=== PATIENT | male | born 1955 | race Caucasian/White ===

== ENCOUNTER 2018-03-13 13:06 | Emergency (ER) | payer OTHER, SELFPAY ==
[2018-03-13 13:07] VITALS: BP 149/89; PULSE 92; RESP 16; TEMP 36.9; O2SAT 97; BMI 26.2
[2018-03-13 13:42] LABS: Absolute Lymphocyte Count 1.07 X10^3/ul (0.83-4.51); Absolute Neutrophil Count 1.1 X10^3/uL (2.0-7.7); Basophil# 0.01 X10^3/uL; Basophil% 0.4 % (0-1); Eosinophil# 0.02 X10^3/uL; Eosinophils% 0.8 % (0-5); Hematocrit 36.2 % (40-54); Hemoglobin 13.1 g/dl (13.0-16.5); Lymphocyte # 1.07 X10^3/ul (4.0); Lymphocyte % 43.1 % (19-41); Mean Corp Hgb Conc 36.2 g/gl (32-36); Mean Corpuscular Hgb 35.9 pg (27.0-32.0); Mean Corpuscular Volume 99.2 fL (80-94); Mean Platelet Vol. 9.9 fl (6.2-12.0); Monocyte% 12.1 % (0-10); Neutrophil # 1.08 X10^3/uL (2.7-7.7); Neutrophil % 43.6 % (47-70); Platelet Count 116 K/mm3 (150-450); RBC Distribution Width CV 15.5 % (11.6-14.6); RBC Distribution Width SD 54.4 fl (35.1-43.9); Red Blood Count 3.65 M/mm3 (4.6-6.2); White Blood Count 2.5 K/mm3 (4.4-11.0)
[2018-03-13 13:45] LABS: POSITIVE COUNT NO; POSITIVE DIFFERENTIAL NO; POSITIVE MORPHOLOGY NO
[2018-03-13 13:49] LABS: Anion Gap 9 (5-15); BUN 25 mg/dL (7-18); BUN/Creat Ratio 26.3 RATIO (10-20); Calcium,Total 8.9 mg/dL (8.5-10.1); Chloride 103 mmol/L (98-107); Creatinine, Serum 0.95 mg/dL (0.70-1.30); EST Glomerular Filtration Rate 85 mL/min (>60); Est Glom Filt Rate - Afr Amer 102 mL/min (>60); Estimated Creatinine Clearance 73.44 ml/min; Glucose 112 mg/dL (74-106); Sodium Level 134 mmol/L (136-145)
[2018-03-13 13:50] LABS: International Normalized Ratio 1.1; Partial Thromboplast Time 26.4 Seconds (24.1-36.2); Prothrombin Time (Protime)PT. 14.3 SECONDS (11.7-14.9)
--- NOTE | 2018-03-13 14:21 | ED.VISSUMM ---
- ER Visit Summary Date of Service: 03/13/18 Chief Complaint: Abnormal CT History of Present Illness: The patient is a 62 M presenting secondary to the CT abnormality. Patient has a history of cancer is undergoing treatment for this, and was getting a surveillance CT performed today. Incidentally the patient was found to have a descending thoracic dissection that starts at the level of the diaphragm and goes inferiorly. Patient is asymptomatic from this, denies any chest pain abdominal pain back pain shortness of breath decreased urine. Patient states that he was otherwise feeling well, and they told him that he had to come into the hospital for evaluation. Physical Examination: Well-nourished male no acute distress. Initial blood pressure 149/89, but decreased into the 120s over 80s while the patient was in the emergency department. Heart rate is in the 80s as well. Head normocephalic. Moist mucous membranes. No JVD. Heart regular rate and rhythm no evidence of murmurs, normal S1 and S2 no gallops. Lungs sounds clear with left anterior chest port clean dry and intact. Abdomen soft nontender no palpable masses are noted. No peripheral edema is noted., +2 DP and PT pulses that are bilaterally symmetric. Remainder of physical otherwise unremarkable. Test Results: CBC demonstrates leukopenia and thrombocytopenia consistent with patient's cancer treatment. Regulation studies are unremarkable, metabolic panel shows no evidence of renal failure Emergency Department Course and Treatment: Patient presented with an incidental finding of a descending type B thoracic dissection. He is asymptomatic. He has no evidence of renal insufficiency bad back pain numbness or weakness. I discussed patient's case with the covering vascular surgeon Dr. Stewart. He states that in patients such as this that are asymptomatic and are not having any issues from their dissection that the preferences for medical treatment with aspirin and a beta-trice. Patient will be placed on full dose aspirin as well asthma Toprol all. He understands signs and symptoms which to return. Patient was discharged with outpatient follow-up with vascular surgery. Disposition: Discharge Impression: 1. Type B thoracic aortic dissection This note was generated with [employer] dictation software. It may contain incorrect words, spelling, and punctuation that were not noted in review of the chart prior to signing ED Disposition - Plan for ED Patient: Disposition: Home or Assisted Living Chief Complaint: Chest Other Diagnosis: Descending thoracic dissection Instructions: Computed Tomography Angiography (CTA) Prescriptions: Aspirin E.C. [Ecotrin] 325 mg PO DAILY@0800 #30 tab Metoprolol Tartrate 25 mg PO BID #60 tab Referrals: Adam Stewart MD [STAFF PHYSICIAN] - 1-2 Weeks
[2018-03-13 14:23] VITALS: BP 129/87; PULSE 84; RESP 22; O2SAT 95
[2018-03-13 14:41] VITALS: BP 138/87; PULSE 77; RESP 16; O2SAT 95
== END 2018-03-13 14:42 | disposition home or self-care (01) ==
PROVIDERS: Emergency Provider Emergency Medicine; Family Provider Family Medicine; PCP Family Medicine
DX: I71.01 Dissection of thoracic aorta (principal); C18.9 Malignant neoplasm of colon, unspecified; D72.819 Decreased white blood cell count, unspecified; D69.6 Thrombocytopenia, unspecified; Z79.899 Other long term (current) drug therapy
CPT/HCPCS: 80048; 85025; 85610; 85730; 99282; A4216

== ENCOUNTER → 2019-05-22 09:49 | Outpatient (CLI) | payer MEDICARE, SELFPAY ==
[2019-05-22 12:13] LABS: Absolute Lymphocyte Count 1.55 X10^3/uL (0.83-4.51); Absolute Neutrophil Count 2.4 X10^3/uL (2.0-7.7); Basophil# 0.02 X10^3/uL; Basophil% 0.4 % (0-1); Eosinophil# 0.09 X10^3/uL; Eosinophils% 1.9 % (0-5); Hematocrit 44.5 % (40-54); Lymphocyte # 1.55 X10^3/ul (4.0); Lymphocyte % 33.5 % (19-41); Mean Corp Hgb Conc 33.7 g/dL (32-36); Mean Corpuscular Hgb 33.2 pg (27.0-32.0); Mean Corpuscular Volume 98.5 fL (80-94); Mean Platelet Vol. 9.8 fl (6.2-12.0); Monocyte# 0.58 X10^3/uL; Monocyte% 12.5 % (0-10); NRBC Flagged by Analyzer 0.4 % (0-5); Neutrophil # 2.38 X10^3/uL (2.7-7.7); Neutrophil % 51.5 % (47-70); Platelet Count 201 K/mm3 (150-450); RBC Distribution Width CV 14.2 % (11.6-14.6); RBC Distribution Width SD 51.8 fl (35.1-43.9); Red Blood Count 4.52 M/mm3 (4.6-6.2); White Blood Count 4.6 K/mm3 (4.4-11.0)
[2019-05-22 12:50] LABS: AST(SGOT) 21 U/L (15-37); Alanine Aminotransfer ALT/SGPT 36 U/L (16-61); Albumin, Serum 3.4 g/dL (3.2-5.0); Alkaline Phosphatase 60 U/L (45-117); Anion Gap 7 (5-15); BUN 17 mg/dL (7-18); BUN/Creat Ratio 19.5 RATIO (10-20); Chloride 107 mmol/L (98-107); Cholesterol 229 mg/dL (200); Creatinine, Serum 0.87 mg/dL (0.70-1.30); EST Glomerular Filtration Rate 93 mL/min (>60); Est Glom Filt Rate - Afr Amer 113 mL/min (>60); Globulin 3.5 g/dL (2.2-4.2); Glucose 119 mg/dL (74-106); High Density Lipoprotein 35 mg/dL; Potassium 4.8 mmol/L (3.5-5.1); Protein, Total 6.9 g/dL (6.4-8.2); Sodium Level 142 mmol/L (136-145); Thyroid Stim Hormone (TSH) 1.32 uIU/mL (0.358-3.74); Triglycerides 164 mg/dL; Very Low Density Lipoprotein 33 mg/dL (5-40)
[2019-05-23 11:46] LABS: Hemoglobin A1c 6.9 % (4.2-6.3)
== END ==
PROVIDERS: Family Provider Family Medicine; PCP Family Medicine; Referring Provider Family Medicine; Visit Provider Family Medicine
DX: E78.00 Pure hypercholesterolemia, unspecified (principal); E78.5 Hyperlipidemia, unspecified; C20 Malignant neoplasm of rectum
CPT/HCPCS: 36415; 80053; 80061; 83036; 84443; 85025

== ENCOUNTER 2019-08-28 07:21 | Day surgery (SDC) | payer MEDICARE, SELFPAY ==
--- NOTE | 2019-08-27 18:31 | PCM.HP.BLA ---
History and Physical Date of Admission: 08/28/19 HISTORY AND PHYSICAL ? Marquis Montgomery 1955 ? ? REFERRING PHYSICIAN: ??Hang Vargas DO ? CHIEF COMPLAINT: ??Consult ? 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 ?Marquis is currently scheduled to undergo chemotherapy and needs vascular access for treatment. ?The patient had a prior left subclavian portacath placed by Dr. Angulo which was removed in April 2018. ? ? PAST MEDICAL HISTORY PAST MEDICAL HISTORY Diagnosis Date ? Hypertension ? ? Rectal cancer (HCC) 2016 ? 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 metastatic adenocarcinoma (colorectal origin) ? ? PAST SURGICAL HISTORY PAST SURGICAL HISTORY Procedure Laterality Date ? COLONOSCOPY ? 05/09/2017 ? DENTAL SURGERY HX ? ? ? PAST SURGICAL HISTORY OF ? 1967 ? right hand surgery ? PAST SURGICAL HISTORY OF ? 10/17/2017 ? colectomy,ileostomy ? PAST SURGICAL HISTORY OF ? ? ? ileostomy closure ? REMV LUNG,WEDGE RESECTION Left 10/17/2018 ? left upper lung (metastatic rectal cancer) ? S PORT A CATH II STANDARD ? 11/22/2017 ? PORT A CATH INSERTION BLUE ? ? CURRENT MEDICATIONS Current Outpatient Medications Medication Sig Dispense Refill ? rosuvastatin (CRESTOR) 10 mg tablet Take 10 mg by mouth once daily. ? ? ? Cod Liver Oil oil Take 1 tablet by mouth twice daily. ? ? ? hydrOXYzine HCl (ATARAX) 10 mg tablet TAKE 1 TABLET BY MOUTH BEFORE BED EACH NIGHT AND EVERY 8 HOURS NEEDED FOR ALLERGIES ? 1 ? Ascorbic Acid (VITAMIN C) 1,000 mg tablet Take 1,000 mg by mouth once daily. ? ? ? cyanocobalamin (VITAMIN B-12) 1,000 mcg tab Take 1,000 mcg by mouth once daily. ? ? ? acetaminophen (TYLENOL) 500 mg tablet Take 2 tablets by mouth every 6 hours as needed. (Patient not taking: Reported on 08/23/2019 ) 50 tablet 0 ? No current facility-administered medications for this visit.? ? ALLERGIES:?Patient has no known allergies. ? PERSONAL HISTORY:? SOCIAL HISTORY Social History ? Tobacco Use ? Smoking status: Former Smoker ? ? Years: 35.00 ? ? Types: Pipe ? ? Last attempt to quit: 06/18/2017 ? ? Years since quittin.1 ? Smokeless tobacco: Never Used ? Tobacco comment: pipe Substance Use Topics ? Alcohol use: Yes ? ? Alcohol/week: 2.5 standard drinks ? ? Types: 1 Glasses of Wine (5oz) per week ? ? Comment: 1-1.5 glasses wine daily ? Drug use: No ? FAMILY HISTORY:? FAMILY HISTORY FAMILY HISTORY Problem Relation Age of Onset ? Stroke Mother ? ? Heart Father ? ? REVIEW OF SYMPTOMS: ??The review of systems data was entered by the nurse and reviewed by me ? Nursing Notes: Jody Marin RN ?08/23/2019 ?1:20 PM ?Signed REVIEW OF SYSTEMS: ?General:???The patient denies fatigue, denies weight loss, denies weight gain, denies feeling hot, and denies feelings of cold. ?Eyes: ?The patient denies glaucoma, denies eye injury/surgery, does not wear glasses or contacts. ?Ear/Nose/Throat: ?The patient denies allergies, denies hayfever, denies ear infections, and denies bloody noses. ?Cardiovascular: ?The patient denies chest pain, denies heart disease, denies high blood pressure,denies cardiac stent, denies prior heart attack, denies irregular heart beat, denies high cholesterol, ?denies poor circulation, denies heart failure, other cardiac issues, notes claudication, denies cold feet, denies peripheral arterial stent. ?Respiratory: ?The patient denies tuberculosis, denies pneumonia, denies frequent cough, denies pulmonary embolism, denies shortness of breath, and denies coughing up blood. ?Gastrointestinal: ?The patient denies difficulty swallowing, denies acid reflux, denies ulcers, denies vomiting, denies jaundice/hepatitis, denies gallbladder problems, denies black or tarry stools, denies hemorrhoids, denies bleeding from rectum, denies diverticulitis, denies constipation, denies diarrhea, denies loss of stool control, and denies hernias. ?Kidney/Bladder: ?The patient denies kidney stones, denies urine infections, and denies bloody urine. ?Skin: ?The patient denies a history of skin cancer, denies bleeding/changing moles, and denies a history of skin rash. ?Neurologic: ?The patient denies a history of epilepsy/convulsions, denies headaches, denies head/spinal injuries, and denies stroke/TIA. ?Psychiatric: ?The patient denies psychiatric medications, denies depression, and denies voices, denies substance abuse. ?Endocrine: ?The patient denies thyroid disorders, denies diabetes, and denies hormonal problems. ?Hematologic: ?The patient denies a history of bruising, denies bleeding, and denies anemia, denies blood clots. ?Infections: ?The patient denies a history of measles and mumps, denies rheumatic fever, and denies sexually transmitted diseases. ?Musculoskeletal: ?The patient denies back pain/injury, denies back problems, denies sciatica, denies knee/foot trouble, denies arthritis, or denies gout. ? ? When was patient's last Mammogram screening? N/A ? ?Last Colonoscopy: ?08/13/2018 ? Jody Marin RN? I have confirmed and edited as necessary, the PFSH and ROS obtained by others. ? ? PHYSICAL EXAMINATION: ? General: ?The patient is 63 year old male, well nourished, well hydrated in no acute distress. ?The patient is oriented to time, place, and person. ? VITALS:?Blood pressure 124/70, pulse 76, temperature 36.4 ?C (97.6 ?F), temperature source Temporal Artery, height 171.5 cm (5' 7.5), weight 86.2 kg (190 lb), SpO2 96 %.?Body mass index is 29.32 kg/m?.? ? HEENT: ?Normal cephalic, ataumatic, pupils are equally round, sclera are anicteric, mucous membranes are moist, oropharynx is clear. ?Neck has no masses, asymmetry or lymphadenopathy. ?Thyroid is unremarkable. ? Respiratory: ?Clear to auscultation and percussion. ?Normal respiratory excursion and pattern. ? Cardiac: ?Examination is regular rate and rhythm. ? Abdominal exam: ?Soft, nontender, ?with no palpable masses. ?No hepatosplenomegaly. ?No palpable hernias. ? Rectal exam:??exam deferred ? Extremities: ?no clubbing, cyanosis or edema. ?No adenopathy. ? Other: ? ? LABORATORY VALUES: As Noted ? RADIOLOGIC STUDIES: ?As Noted ? Assessment ? IMPRESSION:??Rectal adenocarcinoma with metastasis, need for IV access ? PLAN:???Dr. Angulo will plan to perform portacath placement.??The planned surgical procedure was discussed extensively with the patient. ?The risks, benefits, anticipated outcomes and possible complications were mentioned. ?My staff has also explained the procedure in understandable terms and the patient was given the option to take printed material concerning the planned procedure. ?The patient had the opportunity to ask questions concerning the planned procedure. ?The patient freely consents to the planned procedure. ? Planned Procedure:?right??Subclavian portacath - [id number]???History of prior left subclavian portacath ? Patient Weight ?Last 1 Encounter Wt Readings: ???Date: ?Wt: ???08/23/2019 ??86.2 kg (190 lb) ? Antibiotic:???Ancef 2gm IVPB customer service and sales consultant to OR ? Planned Anesthetic:?MAC with local? Dr. Angulo may?plan to access the port at the time of surgery. ? Diagnoses:?(C20) Rectal cancer (HCC) ?(primary encounter diagnosis) (C78.02) Malignant neoplasm metastatic to left lung (HCC) ? ? The patient is being seen by me today at the request of ?for my opinion and advice regarding port placement.? Linette Huang PA-C
[2019-08-28] VITALS (7 sets, daily range): BP systolic 100–123; BP diastolic 67–76; PULSE 62–76; RESP 16–18; TEMP 36.4–36.6; O2SAT 94–98; BMI 29.3
[2019-08-28] MEDS: Lactated Ringers 1,000 ML 100 ML IV (08:08)
[2019-08-28] MEDS: Cefazolin 2 GM in 0.9% Normal Saline 100 ML IV (08:57)
[2019-08-28] MEDS: Bupivacaine 0.5% PF 10 ML VIAL (09:08)
--- NOTE | 2019-08-28 09:26 | DCINST_ITS ---
Discharge Diet: No Restrictions - Pain medication may cause nausea. You should typically eat light foods as you take your pain medication. Discharge Activity: Return to Normal Activity, May Shower - with the bandage in place 1-2 days after surgery. DO NOT SHOWER WHEN YOUR PORT IS ACCESSED. Additional Activity Instructions:: May not drive, work with heavy equipment, or sign legal documents for [address] if you are no longer taking narcotic pain medications. You may drive when you are no longer taking pain medications. Additional Dressing/Incision Instructions:: Leave the bandage on for 2-3 days. When you remove the bandage, leave the steri-strips intact until they fall off. Allergies/Adverse Reactions: Allergies No Known Allergies Allergy (Verified 08/28/19 07:52) Medications to take at Discharge Ascorbic Acid [C-1000] 1,000 mg PO DAILY 06/22/17 hydrOXYzine tablet [Atarax tablet] 10 mg PO BID 06/22/17 Cyanocobalamin (Vitamin B-12) [Vitamin B12] 2,500 mcg PO DAILY 08/27/19 Rosuvastatin Calcium [Crestor] 10 mg PO QHS 08/27/19 Oxycodone HCl/Acetaminophen [Percocet 5/325] 1 tab PO Q4H PRN PRN 3 Days #6 tab 08/28/19 The following prescriptions were given: Oxycodone HCl/Acetaminophen [Percocet 5/325] 1 tab PO Q4H PRN PRN 3 Days #6 tab PRN Reason: Pain Prescription Printed Primary Care Physician: Matheus Renee MD [Primary Care Provider] - Test Results: Test results from this visit will be discussed in further detail at your follow- up appointment, if applicable. Please Follow Up With: Mukul Angulo MD - [phone] When: Please plan to follow up in 7 days in the office.
--- NOTE | 2019-08-28 09:26 | RAD_ITS ---
STUDY: X-RAY CHEST REASON FOR EXAM: Male, 63 years old. Right-sided port placement. TECHNIQUE: Single AP portable view of the chest. COMPARISON: Comparison is made with prior examination dated June 22, 2017. FINDINGS: EKG electrodes are seen. A right-sided Port-A-Cath has been placed. The tip is at the junction of the superior vena cava and right atrium. I suspect a 2.4 cm x 3 cm nodule in the right hilar region. There is no demonstrated pleural abnormality. Normal size heart. Normal mediastinum and ellen. Normal visualized pulmonary arteries. There is atherosclerotic tortuosity of the aortic arch and descending thoracic aorta. Normal visualized thoracic spine. Normal visualized ribs, clavicles, and shoulders. There is no demonstrated abnormality of the visualized soft tissue structures of the upper abdomen. RAD/CXR for Line Placement IMPRESSION: The tip of the right-sided portacatheter is at the junction of the superior vena cava and right atrium. I suspect a nodule in the right hilar region. Electronically Signed: Denis Norwood, at 11:02 EST , Service support ,
--- NOTE | 2019-08-28 09:27 | OP.PCM_ITS ---
Report of Operation Date of Procedure: 08/28/19 Pre-Operative Diagnosis: metastatic rectal adenocarcinoma Post-Operative Diagnosis: metastatic rectal adenocarcinoma, successful right subclavian portacath placement Surgery/Procedure Performed:: right subclavian portacath placement with fluoroscopy landscape maintenance internship: None Type of Anesthesia:: Local MAC Anesthesiologist: Gokul Decker ASA2 Specimen's removed: none Estimated Blood Loss (mL): 10 Fluids Replaced: 500 Description of Procedure: The patient was brought to the operating suite. The right subclavian site was marked in the holding area and the patient concurred this was the planned operative site. Sign was performed verifying patient, site, position, skip antibiotic prophylaxis-2 g of Ancef and DVT prophylaxis with SCDs. Following IV sedation, the right neck and chest were prepped and draped in the usual fashion. Timeout was performed verifying patient, site, position. Local anesthetic was injected and a Seldinger needle was used to access the right subclavian vein without difficulty. Under fluoroscopic control, a guidewire was inserted and advanced the SVC RA region. Local anesthetic was injected and incision made and pocket created for the port site. Next the catheter was tunneled from the wire site incision to the port site incision. Under fluoroscopic control introducer sheath and dilator were inserted over the wire. The wire and dilator removed. The catheter was fed through the introducer suture sheath and adjusted to the SVC RA region. There was good return of venous blood and easy inflow of saline through the system. Fluoroscopy demonstrated good positioning of the catheter. Next the catheter was cut to length affixed to the port with the locking ring and secured in the pocket with 2-2-0 Prolene sutures. Subcutaneous fat closed with interrupted 3-0 Vicryl suture. Skin closed with 4-0 Biosyn interrupted and running subcuticular sutures. Fluoroscopy demonstrated good position of the system. The port was accessed. There was good return of venous blood. Inflow of saline was easy. The port was then flushed with 2-3 cc of 100 unit per heparin solution. A dressing was applied. The patient was brought to recovery room in stable condition. Grafts/Implants Used: powerport [id number] Lot - [id number] exp - 01/08/2021
== END 2019-08-28 11:25 | disposition home or self-care (01) ==
LOC: SDC 07:22 → AC 07:23
PROVIDERS: Family Provider Family Medicine; PCP Family Medicine; Referring Provider Surgery; Visit Provider Surgery
PROC: (CPT 36561; principal; 2019-08-28 08:45)
DX: C20 Malignant neoplasm of rectum (principal); Z45.2 Encounter for adjustment and management of vascular access device; C78.02 Secondary malignant neoplasm of left lung; I10 Essential (primary) hypertension; Z87.891 Personal history of nicotine dependence; Z93.2 Ileostomy status; Z90.49 Acquired absence of other specified parts of digestive tract; Z79.899 Other long term (current) drug therapy
CPT/HCPCS: 36561; 71045; 77001; J7120; C1788

== ENCOUNTER → 2021-02-05 11:31 | Outpatient (CLI) | payer MEDICARE, SELFPAY ==
[2019-08-28 07:54] VITALS: BMI 29.3
--- NOTE | 2021-02-05 11:37 | RAD_ITS ---
EXAM: XR LUMBOSACRAL SPINE, 4 OR 5 VIEWS CLINICAL INDICATION: LEG WEAKNESS/BILATERAL TECHNIQUE: Frontal, lateral and oblique views of the lumbar spine. This report was created using [employer] report generation technology. COMPARISON: None. FINDINGS: VERTEBRAE: Moderate facet arthropathy L4-L5 and L5-S1. No spondylolysis. Preserved vertebral body height. No fracture. Preservation of the normal lumbar lordosis. DISC SPACES: No acute findings. Disc spaces are maintained. VASCULATURE: Atherosclerosis of the abdominal aorta. GASTROINTESTINAL TRACT: Unremarkable as visualized. Included bowel gas pattern is non-obstructive. RAD/L/S Spine Min 4 Views IMPRESSION: Lower level facet arthropathy. Spondylosis. Electronically Signed: Graham Swenson MD ([place]) at 14:36 EDT , Service support ,
== END ==
PROVIDERS: PCP Family Medicine; Referring Provider Family Medicine; Visit Provider Family Medicine
DX: R29.898 Other symptoms and signs involving the musculoskeletal system (principal)
CPT/HCPCS: 72110

== ENCOUNTER → 2021-02-24 10:46 | Outpatient (CLI) | payer MEDICARE, SELFPAY ==
[2019-08-28 07:54] VITALS: BMI 29.3
--- NOTE | 2021-02-24 10:57 | ART_ITS ---
Reason For Study: PAD Procedure A bilateral lower extremity continuous wave Doppler with analog waveform analysis,segmental pressures,and ankle brachial indexes with exercise. Left Segmental Pressures Left brachial= 122mmHg. Left posterior tibial artery = 136mmHg. Left dorsalis pedis artery = 128mmHg. Left digit = 115 mmHg. Right Segmental Pressures Right brachial= 119mmHg. Right posterior tibial artery = 138mmHg. Right dorsalis pedis artery = 134mmHg. Right digit = 94 mmHg. Indices The right ankle brachial index by the posterior tibial artery is 1.13. The right ankle brachial index by the dorsalis pedis is 1.10. The right digital-brachial index is 0.77. The right post exercise ankle brachial index is 1.25. The left ankle brachial index by the posterior tibial artery is 1.11. The left ankle brachial index by the dorsalis pedis is 1.05. The left digital-brachial index is 0.94. The left post exercise ankle brachial index is 1.09. VL/Lower Ext Art Exam w/ Exercise Interpretation Summary Triphasic Doppler waveforms are noted at ankle level bilaterally. Pulse-volume recordings appear satisfactory at all levels bilaterally. Resting ankle-brachial indices are norm al bilaterally. Digital-brachial indices are normal bilaterally. The patient underwent a period of exercise for 5 minutes, following which ankle pressures augmented bilaterally, a normal physio logical response. There is no evidence of significant arterial occlusive disease in the lower ext remities bilaterally. Ordering Physician: Matheus Renee Referring Physician: Matheus Renee Performed By: Jewels Howard RDCS/RVT
== END ==
PROVIDERS: PCP Family Medicine; Referring Provider Family Medicine; Visit Provider Family Medicine
DX: I73.9 Peripheral vascular disease, unspecified (principal)
CPT/HCPCS: 93924

== ENCOUNTER 2022-01-09 15:49 | Inpatient (IN) | payer MEDICARE, SELFPAY ==
[2022-01-09] VITALS (7 sets, daily range): BP systolic 118–212; BP diastolic 74–93; PULSE 62–88; RESP 12–18; TEMP 36.3–36.6; O2SAT 93–98; BMI 24.9
--- NOTE | 2022-01-09 16:19 | CT_ITS ---
We are attempting to reach an attending provider to discuss findings. An addendum with communication details will be sent when the communication is complete. STUDY: CT ABDOMEN AND PELVIS WITH CONTRAST REASON FOR EXAM: Male, 66 years old. abd pain RADIATION DOSAGE (If Supplied By Facility): CTDIvol = ( 14.15 ) mGy, DLP = ( 606.61 ) mGycm TECHNIQUE: Transaxial images were obtained from the dome of the diaphragm to the symphysis pubis without oral contrast. IV 100mL [id number]-[id number] was administered. Sagittal and coronal images were reconstructed. Individualized dose optimization techniques were used for this CT. COMPARISON: 05/16/2017 FINDINGS: Multiple noncalcified nodules in lung bases. Correlation with CT the chest with contrast is recommended. The visualized portions of the heart are within normal limits. Normal liver. Normal gallbladder and extrahepatic biliary system. Normal spleen. Normal pancreas. Normal bilateral adrenal glands. Normal right kidney. Normal left kidney. Normal visualized stomach. Normal small intestine. Normal colon. The appendix is visualized and appears normal. There is diffuse atherosclerotic calcification of the abdominal aorta, without a demonstrated aneurysm. Normal inferior vena cava. Normal retroperitoneum. Normal urinary bladder. 9 cm hernia through the right rectus abdominis muscle containing fat and loop of small bowel and surrounding fluid. There is dilatation and wall thickening of the bowel proximal to the hernia with stranding of the mesenteric fat consistent with strangulation and obstruction. Normal osseous structures. CT/Abdomen/Pelvis W IV Cont ONLY IMPRESSION: Hernia through a defect in the right rectus abdominis muscle with an incarcerated and strangulated loop of small bowel producing bowel obstruction and inflammation. No pneumoperitoneum to suggest perforation. Electronically Signed: Mukul Mcallister MD at 18:17 EDT ,
--- NOTE | 2022-01-09 16:21 | EDS_ITS ---
HPI HPI - GI History of Present Illness Chief Complaint: Abd Pain Informant: patient and spouse/S.O. Abdominal Pain/Flank Pain Onset: Today and Hours Context: Gradual Onset Timing: Continuous Location: RLQ Current Severity: Moderate Maximum Severity: Moderate Worsened by: Nothing Relieved by: Nothing Nausea/Vomiting/Emesis GI Symptom: Negative for Nausea and Vomiting Diarrhea/Melena/Hematochezia GI Symptom: Negative for Diarrhea, Melena and Hematochezia Associated Symptoms Associated Symptoms: Negative for Dysuria, Hematuria and Urgency Narrative Narrative: 66-year-old male history of colon cancer for the last 5 years with liver metastases. Had a prior partial colectomy. States that about 1 to 2 hours ago he got right lower quadrant abdominal pain. He denies any nausea, vomiting or diarrhea. Normal bowel movement yesterday. No dysuria. No fever. Prior similar symptoms: No Recent Illness/Hospitalization: No PFSH PFS Medical History Colon cancer Home Medications ascorbic acid (vitamin C) [C-1000] 1,000 mg PO DAILY 06/22/17 [History Last Taken 06/22/17 08:00] hydroxyzine HCl 10 mg PO BID 06/22/17 [History Last Taken 06/21/17] cyanocobalamin (vitamin B-12) 2,500 mcg PO DAILY 08/27/19 [History Last Taken Unknown] Allergy/AdvReac Type Severity Reaction Status Date / Time No Known Allergies Allergy Verified 01/09/22 15:54 Social History Smoking Status: Former smoker ROS ROS ED ROS Narrative Abdominal pain. Review of Systems ROS Unobtainable: Denies due to encephalopathy Constitutional Constitutional ED: Denies fever(s) ENT ENT ED: Denies ear pain Cardiovascular Cardiovascular: Denies chest pain Respiratory/Chest Respiratory/Chest: Denies cough or dyspnea Gastrointestinal Gastrointestinal: Reports abdominal pain; Denies constipation, diarrhea, melena, nausea or vomiting Genitourinary Genitourinary ED: Denies dysuria or hematuria Musculoskeletal Musculoskeletal: Denies arthralgias or myalgias Integumentary Denies rash Neurologic Neurologic: Denies headache(s) Psychiatric Psychiatric: Denies depression Endocrine Endocrinology: Denies polyuria Hematologic/Lymphatic Hematologic/Lymphatic: Denies easy bruising Allergic/Immunologic Allergic/Immunologic ED: Denies urticaria EXAM Physical Exam Narrative Exam Narrative: 58-year-old male no acute distress vital signs stable afebrile. H EENT exam unremarkable. Neck nontender. Lungs clear to auscultation bilaterally. Heart regular rhythm rate about 60 no murmur. Abdomen soft nondistended normal bowel sounds no peritoneal signs. Tender in right lower quadrant. He does have a hernia there. He states that hernia is really not that tender. Upper quadrants left lower quadrant no significant tenderness. No signs of obstruction. No distention. No pulsatile mass. Moving all 4 extremit ies. Neurologically is awake and alert. Const Vital Signs: 01/09/22 15:51 01/09/22 18:00 01/09/22 18:03 Temperature 97.7 F L Temperature Source Oral Pulse Rate 62 73 Respiratory Rate 14 16 Blood Pressure 184/89 H 212/93 H 183/92 H Blood Pressure Mean 120 132 122 Pulse Ox 96 96 Oxygen Delivery Method Room Air Room Air Positive well nourished and well developed; Negative for obese, cachectic, contractures or unkempt General Appearance ED: well developed and NAD; Negative for unkempt, cachectic, contractures or pallor Nutritional Appearance: Negative for cachectic or obese HEENT Reports moist mucous membranes normocephalic and atraumatic; Negative for trauma or tenderness Eyes PERRL and EOMs intact bilaterally General Eye ED: Negative for pale conjunctiva or scleral icterus Neck no lymphadenopathy, supple and no JVD General: Negative for tenderness Resp normal respiratory effort and clear to auscultation bilaterally Auscultation: Negative for rales, rhonchi or wheezes Cardio regular rate, regular rhythm, S1 normal heart sound, S2 normal heart sound and no murmurs GI non-distended and no masses; Negative for non-tender Inspection: Negative for abdominal distention Auscultation: normoactive bowel sounds; Negative for hyperactive bowel sounds or hypoactive bowel sounds Palpation: soft and tender; Negative for guarding, rigid or rebound tenderness present Back/Spine no CVA tenderness General Back: Negative for CVA tenderness Cervical Spine: Negative for cervical spine tenderness Thoracic Spine / Upper Back: Negative for thoracic spinal tenderness Lumbar Spine / Lower Back: Negative for lumbar spinal tenderness Extremity full ROM General Extremety ED: Negative for edema or tenderness General Extremity: Negative for edema Neuro Sensorium / Orientation: alert, oriented to person, oriented to place and orie nted to time; Negative for orientation impaired Motor Exam: strength 5/5 throughout Psych mental status grossly normal and thought process normal Appearance: Negative for unkempt Attitude: No agitated Mood & Affect: Negative for depressed or tearful Skin no wounds General Skin Exam: Negative for jaundice or pallor Lesions: no lesions Rashes: no rashes MDM MDM MDM Narrative Medical decision making narrative: 66-year-old male known history of colon cancer with liver mets that has been treated for for last 5 years currently is on chemotherapy. 1 to 2 hours ago start developing right lower quadrant abdominal pain. CAT scan labs are pending. Treating him with IV morphine and Zofran. Patient doing well at 6 PM. He has had recurrent pain and was given another dose of morphine. I am unable to reduce the right lower quadrant hernia. A ice pack was applied to that area. I believe the patient has an incarcerated right lower quadrant hernia with a bowel obstruction. Lab Data Attestation: I reviewed the patient's lab results. Lab results narrative: CBC shows a white count 10.7. H&H 11.8 and 34. Platelets 151. Electrolytes show a gap of 8 BUN and creatinine 20 and 0.9. Glucose 168. Liver enzymes unremarkable total bilirubin 1.1. Lipase 36. CAT scan shows what appears to be right lower quadrant hernia with a small bowel obstruction. I discussed this with the patient. I have made that the surgeon on-call aware of this but he is currently tied up in a case in the operating room. He will come evaluate the patient once he is done with that case. Labs: Laboratory Results - last 24 hr 01/09/22 01/09/22 01/09/22 16:30 16:30 17:52 WBC 10.7 RBC 3.19 L Hgb 11.8 L Hct 34.3 L MCV 107.5 H MCH 37.0 H MCHC 34.4 RDW Std Deviation 81.8 H RDW Coeff of Heavenly 21.2 H Plt Count 151 MPV 9.2 Immature Gran % (Auto) 0.700 Neut % (Auto) 82.8 H Lymph % (Auto) 10.2 L Dewitt % (Auto) 5.8 Eos % (Auto) 0.2 Baso % (Auto) 0.3 Absolute Neuts (auto) 8.9 H Absolute Lymphs (auto) 1.09 Nucleated RBC % 0.2 Differential Comment SCANNED Anisocytosis 1+ Sodium 140 Potassium 3.8 Chloride 107 Carbon Dioxide 25.0 Anion Gap 8 BUN 20 H Creatinine 0.93 Estim Creat Clear Calc 71.08 Est GFR (MDRD) Af Amer 104 Est GFR (MDRD) Non-Af 86 BUN/Creatinine Ratio 21.5 H Glucose 168 H Calcium 9.1 Total Bilirubin 1.10 H AST 19 ALT 24 Alkaline Phosphatase 56 Total Protein 7.0 Albumin 4.0 Globulin 3.0 Albumin/Globulin Ratio 1.3 Lipase 36 L Urine Color Yellow Urine Clarity Clear Urine pH 7.0 Ur Specific [place] 1.005 Urine Protein 15 H Urine Glucose (UA) 100 H Urine Ketones 50 H Urine Occult Blood Negative Urine Nitrite Negative Urine Bilirubin Negative Urine Urobilinogen Normal Ur Leukocyte Esterase Negative Discharge Plan Triage Chief Complaint: Abd Pain ED Provider: Caio Hooper Dx/Rx/DC Orders Clinical Impression: Incarcerated hernia, SBO (small bowel obstruction), History of colon cancer Prescriptions: No Action ascorbic acid (vitamin C) [C-1000] 1,000 MG tablet 1,000 mg PO DAILY RF: 0 hydroxyzine HCl 10 MG tablet 10 mg PO BID RF: 0 cyanocobalamin (vitamin B-12) 2,500 MCG tablet 2,500 mcg PO DAILY RF: 0 Primary Care Provider: Matheus Renee Referrals: Matheus Renee MD [Primary Care Provider] - Disposition Disposition: Acute Care [facility]
[2022-01-09] MEDS: 0.9% Normal Saline 1,000 ML 1000 ML IV (16:30)
[2022-01-09] MEDS: morphine 8 MG/ML Syringe IV (16:30)
[2022-01-09] MEDS: Ondansetron 4 MG/2 ML Vial IV (16:31)
[2022-01-09 16:44] LABS: Absolute Lymphocyte Count 1.09 X10^3/uL (0.83-4.51); Absolute Neutrophil Count 8.9 X10^3/uL (2.0-7.7); Basophil# 0.03 X10^3/uL; Basophil% 0.3 % (0-1); Eosinophil# 0.02 X10^3/uL; Eosinophils% 0.2 % (0-5); Hematocrit 34.3 % (40-54); Hemoglobin 11.8 g/dL (13.0-16.5); Lymphocyte # 1.09 X10^3/ul (0.83-4.51); Lymphocyte % 10.2 % (19-41); Mean Corp Hgb Conc 34.4 g/dL (32-36); Mean Corpuscular Volume 107.5 fL (80-94); Mean Platelet Vol. 9.2 fl (6.2-12.0); Monocyte# 0.62 X10^3/uL; Monocyte% 5.8 % (0-10); NRBC Flagged by Analyzer 0.2 % (0-5); Neutrophil % 82.8 % (47-70); POSITIVE MORPHOLOGY YES; Platelet Count 151 K/mm3 (150-450); RBC Distribution Width CV 21.2 % (11.6-14.6); RBC Distribution Width SD 81.8 fl (35.1-43.9); Red Blood Count 3.19 M/mm3 (4.6-6.2); White Blood Count 10.7 K/mm3 (4.4-11.0)
[2022-01-09 16:50] LABS: Differential Indicated SCAN CRITERIA MET
[2022-01-09 17:04] LABS: ALB/GLOB Ratio 1.3 RATIO (0.9-2.4); AST(SGOT) 19 U/L (15-37); Alanine Aminotransfer ALT/SGPT 24 U/L (16-61); Alkaline Phosphatase 56 U/L (45-117); Anion Gap 8 (5-15); BUN 20 mg/dL (7-18); BUN/Creat Ratio 21.5 RATIO (10-20); Calcium,Total 9.1 mg/dL (8.5-10.1); Chloride 107 mmol/L (98-107); Creatinine, Serum 0.93 mg/dL (0.70-1.30); EST Glomerular Filtration Rate 86 mL/min (>60); Est Glom Filt Rate - Afr Amer 104 mL/min (>60); Estimated Creatinine Clearance 71.08 ml/min; Glucose 168 mg/dL (74-106); Lipase 36 U/L (73-393); Potassium 3.8 mmol/L (3.5-5.1); Sodium Level 140 mmol/L (136-145)
[2022-01-09 17:13] LABS: Differential Comment SCANNED
[2022-01-09 17:14] LABS: Anisocytosis 1+
[2022-01-09] MEDS: morphine 8 MG/ML Syringe 6 MG IV (17:57)
[2022-01-09 18:00] LABS: Bacteria 0 SEEN /hpf (None Seen); Color, Urine Yellow (Yellow); Glucose, Dipstick 100 mg/dl (Normal); Ketone-Dipstick 50 mg/dl (Negative); Leukocyte Esterase-Dipstick Negative /ul (Negative); Mucous, Urine 0 SEEN /hpf (<or=2+); Nitrite-Dipstick Negative (Negative); Occult Blood-Urine Negative /ul (Negative); Protein-Dipstick 15 mg/dl (Negative); Red Blood Cells-Urine 0 SEEN /hpf (0-5); Specific Gravity, Urine 1.005 (1.002-1.030); Squamous Epithelial Cells - UA 0 SEEN /hpf (0-5); Urine Bilirubin Dipstick Negative (Negative); Urine Clarity Clear (Clear); Urine Urobilinogen Normal (Normal); White Blood Cells 0 SEEN /hpf (0-5)
[2022-01-09] MEDS: HYDROmorphone 0.5 MG/0.5 ML SYRINGE IV (18:51)
[2022-01-09] MEDS: HYDROmorphone 1 MG/ML Syringe IV (19:23)
--- NOTE | 2022-01-09 20:06 | HP.PCM_ITS ---
HPI - General HPI Narrative LY COLON, is a 66 M who presents to [facility] with acute onset right lower quadrant abdominal pain beginning 1330 this afternoon. This pain has been associated with nausea and vomiting. Patient is actively on chemotherapy for stage IV colon cancer (he states that he is in the final cycle of his chemotherapy regimen and is due to be finished in 3 weeks). He reports a history of partial colectomy with ileostomy and then reversal of ileostomy. He states that he has had a hernia at the ileostomy site for some time and was offered a hernia repair with mesh, but declined this offer since it did not cause him any discomfort. ER work-up is notable for CBC with mild leukocytosis, and CT imaging that was concerning for incarceration/possible strangulation of bowel within a 9 cm rectus hernia. [facility] Medical History Colon cancer Home Medications ascorbic acid (vitamin C) [C-1000] 1,000 mg PO DAILY 06/22/17 [History Last Taken 06/22/17 08:00] hydroxyzine HCl 10 mg PO BID 06/22/17 [History Last Taken 06/21/17] cyanocobalamin (vitamin B-12) 2,500 mcg PO DAILY 08/27/19 [History Last Taken Unknown] Allergy/AdvReac Type Severity Reaction Status Date / Time No Known Allergies Allergy Verified 01/09/22 15:54 Social History Smoking Status: Former smoker Vital Signs Vital Signs Vital Signs: 01/09/22 15:51 01/09/22 18:00 01/09/22 18:03 Temperature 97.7 F L Temperature Source Oral Pulse Rate 62 73 Respiratory Rate 14 16 Blood Pressure 184/89 H 212/93 H 183/92 H Blood Pressure Mean 120 132 122 Pulse Ox 96 96 Oxygen Delivery Method Room Air Room Air Weight Weight: 159 lb 2.78 oz Body Mass Index (BMI) 24.9 Physical Exam Const alert Constitutional Narrative: Initially appears relaxed, but with exam appears in distress from abdominal discomfort Resp normal respiratory effort GI GI Narrative: Nondistended, multiple scars across the abdomen including the right lower quadrant ostomy scar that is bulging. Hernia contents are soft and with gentle traction were reduced to the point that I was able to feel inside the rectus defect. Patient has persistent tenderness over this area as well as the left lower quadrant with exam. Results Lab / Micro Data Result Diagrams: 01/09/22 16:30 01/09/22 16:30 Labs: Laboratory Results - last 24 hr 01/09/22 16:30: WBC 10.7, RBC 3.19 L, Hgb 11.8 L, Hct 34.3 L, MCV 107.5 H, MCH 37.0 H, MCHC 34.4, RDW Std Deviation 81.8 H, RDW Coeff of Heavenly 21.2 H, Plt Count 151, MPV 9.2, Immature Gran % (Auto) 0.700, Neut % (Auto) 82.8 H, Lymph % (Auto) 10.2 L, [place] % (Auto) 5.8, Eos % (Auto) 0.2, Baso % (Auto) 0.3, Absolute Neuts (auto) 8.9 H, Absolute Lymphs (auto) 1.09, Nucleated RBC % 0.2, Differential Comment SCANNED, Anisocytosis 1+ 01/09/22 16:30: Sodium 140, Potassium 3.8, Chloride 107, Carbon Dioxide 25.0, Anion Gap 8, BUN 20 H, Creatinine 0.93, Estim Creat Clear Calc 71.08, Est GFR (MDRD) Af Amer 104, Est GFR (MDRD) Non-Af 86, BUN/Creatinine Ratio 21.5 H, Glucose 168 H, Calcium 9.1, Total Bilirubin 1.10 H, AST 19, ALT 24, Alkaline Phosphatase 56, Total Protein 7.0, Albumin 4.0, Globulin 3.0, Albumin/Globulin Ratio 1.3, Lipase 36 L 01/09/22 17:52: Urine Color Yellow, Urine Clarity Clear, Urine pH 7.0, Ur Spe cific [place] 1.005, Urine Protein 15 H, Urine Glucose (UA) 100 H, Urine Ketones 50 H, Urine Occult Blood Negative, Urine Nitrite Negative, Urine Bilirubin Negative, Urine Urobilinogen Normal, Ur Leukocyte Esterase Negative, Urine RBC 0 SEEN, Urine WBC 0 SEEN, Ur Squamous Epith Cells 0 SEEN, Urine Bacteria 0 SEEN, Urine Mucus 0 SEEN Radiology Impression Abdomen/Pelvis CT 01/09/22 16:19 IMPRESSION: Hernia through a defect in the right rectus abdominis muscle with an incarcerated and strangulated loop of small bowel producing bowel obstruction and inflammation. No pneumoperitoneum to suggest perforation. Electronically Signed: Mukul Mcallister MD at 18:17 EDT , ADDENDUM: 01/09/22 1833 IMPRESSION: Hernia through a defect in the right rectus abdominis muscle with an incarcerated and strangulated loop of small bowel producing bowel obstruction and inflammation. No pneumoperitoneum to suggest perforation. N.B. : The above Results were Read Back by Mukul Mcallister MD to Dr. Tony Hooper MD, MD, and understanding confirmed on 01/09/2022 18:26:49 (ET). Electronically Signed: Mukul Mcallister MD at 18:17 EDT , Assessment & Plan Assessment/Plan (1) Incarcerated incisional hernia: PLAN: Status postreduction in ER, both persistent abdominal tenderness. There is also some stranding noted in the mesentery concerning for possible strangulation on CT. Taken together, I recommend proceeding to the operating room for cutdown over the hernia defect, diagnostic laparoscopy (with consent obtained for possible bowel resection versus ostomy if bowel is found nonviable), and repair of hernia defect. I informed the patient that he is at high risk of hernia breakdown or anastomosis breakdown (should this be required) given his concurrent chemotherapy. Patient expressed understanding wishes to proceed as described. (2) SBO (small bowel obstruction): PLAN: Obstructed within right incisional/stomal hernia now reduced. We will plan to maintain n.p.o. until return of bowel function (3) History of colon cancer: PLAN: Patient currently on chemotherapy regimen. Given the operation this evening, will need to suspend treatments until healed. Patient informed of this expectation and gives his consent to proceed.
[2022-01-09 20:29] LABS: Lactic Acid 2.5 mmol/L (0.4-1.9)
--- NOTE | 2022-01-09 21:30 | COL_PTH ---
PATIENT: LY COLON LOC: MS3 U#:[id number] AGE/SX: 66/M ROOM: [facility]09[place]: Dr. Jose Dai MD : 1955 BED: 1 DIS: 01/14/2022 SPEC #: [id number] RECD: 01/10/22 08:09 STATUS: ALEXANDRA REBlayne #: [id number] LISA: 01/09/22 21:[address]: Jose Dai DEPT: SURGICAL PATHOLOGY RECD BY: Haley Linton ENTERED: 01/10/22 08:29 SP TYPE: COLON OTHR DR: Dr. Matheus Renee MD Tissues: A - Small intestine mucous membrane B - Omentum, NOS C - HERNIA Procedures: Surgery Specimen Level III Surgery Specimen Level IV Surgery Specimen Level V HEADER OPERATION: Diagnostic laparoscopy with repair of incisional hernia PRE-OP DIAGNOSIS: Incarcerated incisional hernia TISSUE SUBMITTED: A - Small Bowel, B - Omental nodule from hernia sac, C - Hernia sac MICROSCOPIC DIAGNOSIS A. Small bowel, segmental resection: Focal hemorrhagic infarction, vascular congestion and nonspecific chronic inflammation. B. Omental nodule from hernia sac, excision: Organizing fat necrosis. C. Hernia sac: Fibrosis and benign hyalinized tissue. AM:crow 01/12/2022 COMMENT Case has been reviewed in consultation with Dr. Sena who concurs with the above diagnosis. TARUN:WALTER MICROSCOPIC DESCRIPTION Slides are reviewed. GROSS DESCRIPTION A - Received in fixative is one container labeled with the patient's name and designated small bowel. The specimen consists of a segment of small bowel with attached mesentery measuring 32 cm in length. Both resection margins are stapled. Also entire segment of small bowel except a 1.5 cm portion of the small bowel shows extreme congestion. The lumen is filled with hemorrhagic material. The mucosa is congested and hemorrhagic. No mucosal lesion is identified. Also present in the container is a detached piece of bowel tissue measuring 2 x 0.5 x 0.5 cm. Sections will be submitted after fixation. / WALTER:crow 01/10/2022 Section through the mesenteric tissue reveal extensive congestion and hemorrhage. No obvious lymph nodes are identified. Highway Patrol Commander sections are submitted in six cassettes as follows: 1 - separately received piece of bowel tissue, 2 - resection margin, 3 - circulation sales representative section from the terminal portion of?the bowel, 4 - circulation sales representative section from the congested and hemorrhagic area of bowel, 5??circulation sales representative section from the congested and hemorrhagic area of bowel with attached mesenteric tissue, 6 ? more sections from mesenteric tissue. / SJ:crow 01/11/2022 B - Received in fixative is one container labeled with the patient's name and designated omental nodule from hernia sac. The specimen consists of a piece of adipose tissue containing a nodule. The entire specimen measures 3.5 x 3.5 x 2 cm. The nodule measures 2.5 cm. Sections of the nodule reveal yellowish cut surfaces. No additional lesion is identified. Highway Patrol Commander sections are submitted in one cassette. / SJ:crow 01/10/2022 C - Received in fixative is one container labeled with the patient's name and designated hernia sac. The specimen consists of two pieces of irizarry soft tissue measuring in aggregate 12 x 2.5 x 1 cm. No mass lesion is identified. Highway Patrol Commander sections are submitted in one cassette. / SJ:crow 01/10/2022 TC:3 CPT: 54427, 08981, [id number]
[2022-01-09] MEDS: Lactated Ringers 1,000 ML 15 ML IV (22:15)
--- NOTE | 2022-01-09 23:25 | PCM.OPRPT ---
Report of Operation Date of Procedure: 01/09/22 Pre-Operative Diagnosis: Incarcerated, possibly strangulated incisional hernia with obstruction Post-Operative Diagnosis: Incarcerated, strangulated incisional hernia with obstruction and infarcted small bowel Surgery/Procedure Performed:: 1. Diagnostic laparoscopy converted to 2. Exploratory laparotomy 3. Small bowel resection with primary stapled anastomosis 4. Open primary repair of incisional (previous stoma) hernia Description of Surgical Findings:: ? Laparoscopic evidence of infarcted small bowel ? 36 cm infarcted small bowel ? New stapled, [id number], functional end-to-end anastomosis 280 cm distal to the ligament of Treitz ? 9 cm long defect in rectus muscle Surgeon: Jose Dai pari mutuel ticket seller: Pema Xiao Type of Anesthesia: General/Supplemental Anesthesiologist: Ashish Hutchinson Specimen's removed: Small bowel, hernia sac, omental nodule Estimated Blood Loss (mL): 100 Description of Procedure: Patient was brought to the operating room from the emergency department where he was then positioned supine on the operating room table. 2 g of Ancef were administered for surgical prophylaxis. Patient was induced with general anesthesia. His abdomen was prepped and draped in the usual sterile fashion. Formal timeout was conducted to confirm the patient and the procedure. Procedure was commenced with a longitudinal incision over the midpoint of the patient's palpable hernia defect in the right paramedian space. This was carefully deepened through the subcutaneous layer then the peritoneum was elevated between hemostats and sharply incised. A 12 mm balloon Villalobos trocar was placed through this opening and the abdomen was insufflated to a filling pressure of 15 mmHg. A laparoscope was inserted and it was immediately apparent that the patient had a loop of infarcted small bowel, but further visualization was somewhat limited by several thick adhesive bands crossing the visual field. With this finding, I elected to convert to an open laparotomy. A midline incision was made from approximately 10 cm above the umbilicus to 6 cm below. This was deepened through the subcutaneous tissue down to the level of fascia which was carefully opened. Examining the process in the right lower quadrant from this vantage point, I was able to identify numerous thick bands of tissue holding the small bowel into a tight hairpin loop and then an additional band of tissue appeared to be strangulating the mesentery. Once this band was lysed, the bowel came free and, indeed, there were 2 areas of small bowel that were stenotic and ischemic with infarcted small bowel between them. The full length of the infarcted/severely ischemic bowel measured 36 cm. I elected to perform a small bowel resection with primary anastomosis and stapled the bowel in a area of clearly viable tissue and divided the intervening mesentery with a LigaSure device. A [id number], functional end-to-end stapled anastomosis was created in the usual fashion using a 75 JYOTHI stapler with a TX 60 mm stapler to close the common enterotomy. The mesenteric defect was closed with a running 3-0 Vicryl stitch. A running 3-0 silk stitch was used to imbricate the enterotomy staple line in a Lembert fashion. A second 3-0 silk stitch was used to create a crotch stitch at the end of the anastomosis. Anastomosis was palpated and found to be widely open. Satisfied with this appearance, bowel was returned to the peritoneum and I then ran the small bowel from the anastomosis proximally. The anastomosis was located approximately 280 cm distal to the ligament of Treitz. There were no other gross abnormalities with the remaining small bowel and it all appeared to be largely of normal caliber. I had previously asked anesthesia to place a nasogastric tube and at this time I palpated for the position of the tube in the stomach and requested advancement by approximately 8 cm. This was done and the tube was secured. Attention was then turned to closure of the patient's abdominal wall defect. The skin incision was elongated so that we could better visualize the fascial defect (which measured 9 cm once fully exposed). There were numerous omental adhesions within this hernia defect that were lysed and in doing so I encountered a small (~2 cm) nodule that appeared to represent fat necrosis or infarcted omentum. However, given the patient's concurrent metastatic rectal cancer diagnosis I resected this mass and submitted for pathologic processing. Once the omentum could be returned to the peritoneum, several dense bands of fibrous tissue were lysed to create a singular rectus defect. Seeking to minimize the risk of a postoperative seroma, I resected the majority of the patient's hernia sac above the fascia by bluntly dissecting this away from the surrounding subcutaneous tissue and underlying fascia. I was careful to preserve the integrity and blood supply of the underlying fascia. The fascial defect was then closed with a running #1 Prolene suture. Once this defect was closed, I placed a 10 Irish round Melecio drain above the level of the fascia (securing it at the skin with a 2-0 nylon stitch) and closed Anthony's fascia over the drain. The skin was stapled at this site and our attention was then turned to closure of the midline laparotomy wound. Just prior to closure, I placed a 19 Irish round Melecio drain in the right paracolic gutter and secured this at the skin with a 2-0 nylon suture. The fascia of the laparotomy wound was closed with a running technique using a #1 PDS. A total of 20 mL 0.75% bupivacaine was infiltrated about the laparotomy site, and hernia site, and the 2 drain sites. Skin siobhan were then used to close the skin of the midline laparotomy wound. Silver dressing and OpSite were applied, respectively to the laparotomy and hernia sites. Drains were connected to suction. Patient was then awoken from general anesthetic without complication and transferred to PACU for ongoing recovery. Complications None Admit VTE Documentation VTE Present on Admission: Yes VTE Mechan Device Prophylaxis: SCD's
[2022-01-09 23:28] LABS: Reflex Lactate? Y
[2022-01-10] VITALS (10 sets, daily range): BP systolic 106–168; BP diastolic 63–93; PULSE 75–90; RESP 16–18; TEMP 36.7–37; O2SAT 92–98; BMI 24.7
[2022-01-10 00:40] LABS: Lactic Acid 1.7 mmol/L (0.4-1.9)
[2022-01-10] MEDS: 0.9% Normal Saline 1,000 ML 125 ML IV ×3 (01:18→17:01)
[2022-01-10 06:29] LABS: Absolute Lymphocyte Count 0.98 X10^3/uL (0.83-4.51); Absolute Neutrophil Count 8.8 X10^3/uL (2.0-7.7); Basophil# 0.01 X10^3/uL; Basophil% 0.1 % (0-1); Hematocrit 28.3 % (40-54); Hemoglobin 9.6 g/dL (13.0-16.5); Lymphocyte # 0.98 X10^3/ul (0.83-4.51); Lymphocyte % 9.3 % (19-41); Mean Corp Hgb Conc 33.9 g/dL (32-36); Mean Corpuscular Hgb 37.6 pg (27.0-32.0); Mean Platelet Vol. 9.7 fl (6.2-12.0); Monocyte# 0.74 X10^3/uL; NRBC Flagged by Analyzer 0.2 % (0-5); Neutrophil # 8.77 X10^3/uL (2.7-7.7); Neutrophil % 83.1 % (47-70); POSITIVE MORPHOLOGY YES; Platelet Count 167 K/mm3 (150-450); RBC Distribution Width CV 21.8 % (11.6-14.6); RBC Distribution Width SD 85.4 fl (35.1-43.9); Red Blood Count 2.55 M/mm3 (4.6-6.2); White Blood Count 10.6 K/mm3 (4.4-11.0)
[2022-01-10 06:31] LABS: Differential Indicated SCAN CRITERIA MET
[2022-01-10 06:51] LABS: Macrocytosis 3+
[2022-01-10 06:52] LABS: Anisocytosis 3+
[2022-01-10 06:53] LABS: Anion Gap 4 (5-15); BUN 19 mg/dL (7-18); BUN/Creat Ratio 23.7 RATIO (10-20); Calcium,Total 7.7 mg/dL (8.5-10.1); Chloride 107 mmol/L (98-107); EST Glomerular Filtration Rate 102 mL/min (>60); Est Glom Filt Rate - Afr Amer 123 mL/min (>60); Estimated Creatinine Clearance 79.75 ml/min; Glucose 124 mg/dL (74-106); Magnesium 1.8 mg/dL (1.6-2.6); Phosphorus 3.3 mg/dL (2.5-4.9); Potassium 4.4 mmol/L (3.5-5.1); Sodium Level 140 mmol/L (136-145)
--- NOTE | 2022-01-10 07:59 | PCM.PN.SRG ---
Subjective Subjective Patient seen examined during AM rounds. He is found resting in bed. He states that he has some postoperative discomfort, but this is much more bearable than what he presented with yesterday in the emergency department. He denies any passage of flatus/return of bowel function at this point. Objective Data Objective Data Vital Signs: Vital Signs Temp Pulse Resp BP Pulse Ox 98.2 F 77 18 119/69 92 01/10/22 05:00 01/10/22 05:00 01/10/22 05:00 01/10/22 05:00 01/10/22 05:00 Oxygen Delivery Method Room Air Weight: 157 lb 10.088 oz Body Mass Index (BMI) 24.7 Intake & Output: Intake and Output for Last 24 Hours 01/08/22 01/09/22 01/10/22 23:59 23:59 23:59 Intake Total 1000 / 1000 72.25 / 72.25 Output Total 560 / 560 Balance 1000 / 1000 -487.75 / -487.75 Lab / Micro Data Result Diagrams: 01/10/22 05:30 01/10/22 05:30 Labs: Laboratory Results - last 24 hr 01/09/22 16:30: WBC 10.7, RBC 3.19 L, Hgb 11.8 L, Hct 34.3 L, MCV 107.5 H, MCH 37.0 H, MCHC 34.4, RDW Std Deviation 81.8 H, RDW Coeff of Heavenly 21.2 H, Plt Count 151, MPV 9.2, Immature Gran % (Auto) 0.700, Neut % (Auto) 82.8 H, Lymph % (Auto) 10.2 L, Pierce % (Auto) 5.8, Eos % (Auto) 0.2, Baso % (Auto) 0.3, Absolute Neuts (auto) 8.9 H, Absolute Lymphs (auto) 1.09, Nucleated RBC % 0.2, Differential Comment SCANNED, Anisocytosis 1+ 01/09/22 16:30: Sodium 140, Potassium 3.8, Chloride 107, Carbon Dioxide 25.0, Anion Gap 8, BUN 20 H, Creatinine 0.93, Estim Creat Clear Calc 71.08, Est GFR (MDRD) Af Amer 104, Est GFR (MDRD) Non-Af 86, BUN/Creatinine Ratio 21.5 H, Glucose 168 H, Calcium 9.1, Total Bilirubin 1.10 H, AST 19, ALT 24, Alkaline Phosphatase 56, Total Protein 7.0, Albumin 4.0, Globulin 3.0, Albumin/Globulin Ratio 1.3, Lipase 36 L 01/09/22 17:52: Urine Color Yellow, Urine Clarity Clear, Urine pH 7.0, Ur Specific [place] 1.005, Urine Protein 15 H, Urine Glucose (UA) 100 H, Urine Ketones 50 H, Urine Occult Blood Negative, Urine Nitrite Negative, Urine Bilirubin Negative, Urine Urobilinogen Normal, Ur Leukocyte Esterase Negative, Urine RBC 0 SEEN, Urine WBC 0 SEEN, Ur Squamous Epith Cells 0 SEEN, Urine Bacteria 0 SEEN, Urine Mucus 0 SEEN 01/09/22 19:25: Lactic Acid 2.5 H* 01/09/22 23:55: Lactic Acid 1.7 01/10/22 05:30: WBC 10.6, RBC 2.55 L, Hgb 9.6 L, Hct 28.3 L, MCV 111.0 H, MCH 37.6 H, MCHC 33.9, RDW Std Deviation 85.4 H, RDW Coeff of Heavenly 21.8 H, Plt Count 167, MPV 9.7, Immature Gran % (Auto) 0.500, Neut % (Auto) 83.1 H, Lymph % (Auto) 9.3 L, Pierce % (Auto) 7.0, Eos % (Auto) 0.0, Baso % (Auto) 0.1, Absolute Neuts (auto) 8.8 H, Absolute Lymphs (auto) 0.98, Nucleated RBC % 0.2, Anisocytosis 3+, Macrocytosis 3+ 01/10/22 05:30: Sodium 140, Potassium 4.4, Chloride 107, Carbon Dioxide 29.0, Anion Gap 4 L, BUN 19 H, Creatinine 0.80, Estim Creat Clear Calc 79.75, Est GFR (MDRD) Af Amer 123, Est GFR (MDRD) Non-Af 102, BUN/Creatinine Ratio 23.7 H, Glucose 124 H, Calcium 7.7 L, Phosphorus 3.3, Magnesium 1.8 Micro: Microbiology 01/09/22 20:32 Nasal Secretion SARS-CoV-2 Antigen (Rapid) - Final Radiography Diagnostic Testing: Radiology Impression Abdomen/Pelvis CT 05/01/22 16:19 IMPRESSION: Hernia through a defect in the right rectus abdominis muscle with an incarcerated and strangulated loop of small bowel producing bowel obstruction and inflammation. No pneumoperitoneum to suggest perforation. Electronically Signed: Mukul Mcallister MD at 18:17 EDT Reading Location ID and State: 1959 / [employer] Tel , Service support , ADDENDUM: 01/09/22 1833 IMPRESSION: Hernia through a defect in the right rectus abdominis muscle with an incarcerated and strangulated loop of small bowel producing bowel obstruction and inflammation. No pneumoperitoneum to suggest perforation. N.B. : The above Results were Read Back by Mukul Mcallister MD to Dr. Tony Hooper MD, MD, and understanding confirmed on 01/09/2022 18:26:49 (ET). Electronically Signed: Mukul Mcallister MD at 18:17 EDT , Physical Exam Const no apparent distress Resp normal respiratory effort GI GI Narrative: Nasogastric tube in place to low intermittent wall suction. Abdomen wrapped in abdominal binder is nondistended. There is some strikethrough drainage on both dressings. Serosanguineous output from both 10 Cambodian hernia drain and 19 Cambodian abdominal drain. Patient appropriately tender to palpation about his laparotomy incision. Assessment & Plan Assessment/Plan (1) Hernia with strangulation: (2) SBO (small bowel obstruction): PLAN: Postoperative day 1 from diagnostic laparoscopy converted to exploratory laparotomy with small bowel resection and repair of incisional hernia. Patient recovering as expected with appropriate pain control. Still awaiting return of bowel function. Neuro: As needed Dilaudid Pulm/CV: Incentive spirometry, monitor BP FEN/GI: Continue to monitor electrolytes while patient NPO. Continue n.p.o. status until patient passing gas. Low wall intermittent suction on NG tube. Heme/ID: Hemoglobin down trended postoperatively?suspect this multifactorial due to some operative losses but also hemodilution. We will continue to monitor the daily labs. Endo: No acute issues Proph: Continue SCDs. Hold chemoprophylaxis while patient's hemoglobin down trended Dispo: Continue inpatient status Charges/Coding Visit Charges Inpatient E&M: 78370 Subs Hosp L2
[2022-01-10] MEDS: HYDROmorphone 0.5 MG/0.5 ML SYRINGE IV ×4 (08:33→21:09)
[2022-01-10] MEDS: 0.9% Saline Lock 10 ML Syringe IV ×2 (08:33→13:32)
[2022-01-10] MEDS: Ondansetron 4 MG/2 ML Vial IV (08:33)
--- NOTE | 2022-01-10 09:50 | CASEMGMT ---
RN CM Face to Face with patient for initial transition planning/care coordination assessment. RN CM introduced self and role at [facility]. Patient lying in bed, alert and oriented. Patient willing to participate in assessment and is able to answer all questions appropriately. Care providers, pharmacy, and demographics verified. Patient wishes to discharge home, denies need for home health at this time. Patient states he has no further needs or concerns at this time. CM to follow for discharge planning needs that may arise. PCP: Víctor Specialists: Sam oncologist Preferred Pharmacy: [facility] Insurance: [facility] Prescription Benefit: yes Living Will/HPOA: patient not sure LNOK: sister Living Arrangements: Patient lives alone in a single story home with 2 steps and railing to enter the home. Patient states he is independent at home. Transportation: self/sister DME/HHC: patient states he has cane and grab bars at home. Patient denies previous HHC or SNF. Disposition Plan: Patient to discharge home with family support and follow-up plans in place. Nette ORDOÑEZ, RN, CM
[2022-01-10] MEDS: Magnesium Sulfate 4gm/100mL 4 GM/100 ML IV.SOLN. IV (09:52)
[2022-01-11] MEDS: HYDROmorphone 0.5 MG/0.5 ML SYRINGE IV ×6 (01:05→22:10)
[2022-01-11] MEDS: 0.9% Normal Saline 1,000 ML 125 ML IV ×3 (01:07→21:54)
[2022-01-11 02:00] VITALS: BP 137/72; PULSE 84; RESP 18; TEMP 36.8; O2SAT 94
[2022-01-11 05:21] LABS: Absolute Lymphocyte Count 0.98 X10^3/uL (0.83-4.51); Basophil# 0.01 X10^3/uL; Basophil% 0.1 % (0-1); Eosinophil# 0.03 X10^3/uL; Eosinophils% 0.4 % (0-5); Hematocrit 24.7 % (40-54); Hemoglobin 8.3 g/dL (13.0-16.5); Lymphocyte # 0.98 X10^3/ul (0.83-4.51); Lymphocyte % 12.2 % (19-41); Mean Corp Hgb Conc 33.6 g/dL (32-36); Mean Corpuscular Hgb 37.6 pg (27.0-32.0); Mean Corpuscular Volume 111.8 fL (80-94); Mean Platelet Vol. 9.5 fl (6.2-12.0); Monocyte# 0.92 X10^3/uL; Monocyte% 11.5 % (0-10); NRBC Flagged by Analyzer 0.4 % (0-5); Neutrophil % 74.8 % (47-70); POSITIVE MORPHOLOGY YES; Platelet Count 151 K/mm3 (150-450); RBC Distribution Width CV 21.8 % (11.6-14.6); RBC Distribution Width SD 86.8 fl (35.1-43.9); Red Blood Count 2.21 M/mm3 (4.6-6.2)
[2022-01-11 05:25] LABS: Differential Indicated SCAN CRITERIA MET
[2022-01-11 05:37] LABS: Anion Gap 5 (5-15); BUN 17 mg/dL (7-18); BUN/Creat Ratio 27.2 RATIO (10-20); Calcium,Total 7.5 mg/dL (8.5-10.1); Chloride 107 mmol/L (98-107); Creatinine, Serum 0.62 mg/dL (0.70-1.30); EST Glomerular Filtration Rate 136 mL/min (>60); Est Glom Filt Rate - Afr Amer 164 mL/min (>60); Glucose 121 mg/dL (74-106); Magnesium 2.2 mg/dL (1.6-2.6); Phosphorus 1.3 mg/dL (2.5-4.9); Potassium 3.7 mmol/L (3.5-5.1); Sodium Level 139 mmol/L (136-145)
[2022-01-11 05:48] LABS: Anisocytosis 2+; Macrocytosis 3+
[2022-01-11] MEDS: 0.9% Saline Lock 10 ML Syringe IV ×4 (09:17→22:10)
[2022-01-11 09:25] VITALS: BP 132/65; PULSE 83; RESP 16; TEMP 36.9; O2SAT 96
[2022-01-11 10:01] LABS: Absolute Lymphocyte Count 0.86 X10^3/uL (0.83-4.51); Absolute Neutrophil Count 7.4 X10^3/uL (2.0-7.7); Basophil# 0.01 X10^3/uL; Basophil% 0.1 % (0-1); Eosinophil# 0.04 X10^3/uL; Eosinophils% 0.4 % (0-5); Hematocrit 25.5 % (40-54); Hemoglobin 8.7 g/dL (13.0-16.5); Lymphocyte # 0.86 X10^3/ul (0.83-4.51); Lymphocyte % 9.2 % (19-41); Mean Corp Hgb Conc 34.1 g/dL (32-36); Mean Corpuscular Hgb 38.3 pg (27.0-32.0); Mean Corpuscular Volume 112.3 fL (80-94); Mean Platelet Vol. 10.2 fl (6.2-12.0); Monocyte# 0.97 X10^3/uL; Monocyte% 10.4 % (0-10); NRBC Flagged by Analyzer 0.3 % (0-5); Neutrophil # 7.39 X10^3/uL (2.7-7.7); POSITIVE MORPHOLOGY YES; Platelet Count 157 K/mm3 (150-450); RBC Distribution Width CV 22.2 % (11.6-14.6); RBC Distribution Width SD 88.6 fl (35.1-43.9); Red Blood Count 2.27 M/mm3 (4.6-6.2); White Blood Count 9.4 K/mm3 (4.4-11.0)
--- NOTE | 2022-01-11 10:13 | PN.SURG_ITS ---
Subjective Subjective Patient seen and examined during AM rounds. He is found resting comfortably in bed. He states that his abdominal pain is somewhat improved. He denies any passage of flatus. He confirms that he did go for a walk last evening. Objective Data Objective Data Vital Signs: Vital Signs Temp Pulse Resp BP Pulse Ox 98.5 F 83 16 132/65 H 96 01/11/22 09:25 01/11/22 09:25 01/11/22 09:25 01/11/22 09:25 01/11/22 09:25 Oxygen Flow Rate (L/min) 2 Oxygen Delivery Method Nasal Cannula Weight: 157 lb 10.088 oz Body Mass Index (BMI) 24.7 Intake & Output: Intake and Output for Last 24 Hours 01/09/22 01/10/22 01/11/22 23:59 23:59 23:59 Intake Total 1000 / 1000 2399.67 / 2399.67 1130 / 1130 Output Total 1650 / 1650 845 / 845 Balance 1000 / 1000 749.67 / 749.67 285 / 285 Lab / Micro Data Result Diagrams: 01/11/22 09:31 01/11/22 09:31 Labs: Laboratory Results - last 24 hr 01/11/22 05:10: WBC 8.0, RBC 2.21 L, Hgb 8.3 L, Hct 24.7 L, MCV 111.8 H, MCH 37.6 H, MCHC 33.6, RDW Std Deviation 86.8 H, RDW Coeff of Heavenly 21.8 H, Plt Count 151, MPV 9.5, Immature Gran % (Auto) 1.000 H, Neut % (Auto) 74.8 H, Lymph % (Auto) 12.2 L, [place] % (Auto) 11.5 H, Eos % (Auto) 0.4, Baso % (Auto) 0.1, Absolute Neuts (auto) 6.0, Absolute Lymphs (auto) 0.98, Nucleated RBC % 0.4, Anisocytosis 2+, Macrocytosis 3+ 01/11/22 05:10: Sodium 139, Potassium 3.7, Chloride 107, Carbon Dioxide 27.0, Anion Gap 5, BUN 17, Creatinine 0.62 L, Estim Creat Clear Calc 63.80, Est GFR (MDRD) Af Amer 164, Est GFR (MDRD) Non-Af 136, BUN/Creatinine Ratio 27.2 H, Glucose 121 H, Calcium 7.5 L, Phosphorus 1.3 L, Magnesium 2.2 Micro: Microbiology 01/09/22 20:32 Nasal Secretion SARS-CoV-2 Antigen (Rapid) - Final Physical Exam Const no apparent distress Resp normal respiratory effort GI GI Narrative: Nasogastric tube to low intermittent wall suction with thin bilious output. Abdomen nondistended, operative dressings intact with minimal drainage strikethrough. The right paramedian (hernia site) dressing was removed and changed. Beneath, the skin edges remain well approximated with skin siobhan. Patient's surgical drains contain small amount of serosanguineous fluid. Assessment & Plan Assessment/Plan (1) Hernia with strangulation: (2) SBO (small bowel obstruction): PLAN: Postoperative day 2 from diagnostic laparoscopy converted to exploratory laparotomy with small bowel resection and repair of incisional hernia. Patient recovering as expected with appropriate pain control. Still awaiting return of bowel function. Neuro: As needed Dilaudid Pulm/CV: Incentive spirometry, monitor BP FEN/GI: Continue to monitor electrolytes while patient NPO?we will replace patient's phosphorus for hypophosphatemia this morning. Continue n.p.o. status until patient passing gas. Low wall intermittent suction on NG tube. Patient has been encouraged to ambulate frequently to try to stimulate return of bowel function. Heme/ID: Hemoglobin down trended further postoperatively?suspect this multifactorial due to some operative losses but also hemodilution. Only serosanguineous drainage through operative drains. We will continue to monitor the daily labs. Endo: No acute issues Proph: Continue SCDs. Hold chemoprophylaxis while patient's hemoglobin down trended Dispo: Continue inpatient status Charges/Coding Visit Charges Inpatient E&M: 44996 Subs Hosp L2
[2022-01-11 10:15] LABS: Anion Gap 7 (5-15); BUN 14 mg/dL (7-18); Calcium,Total 7.3 mg/dL (8.5-10.1); Chloride 106 mmol/L (98-107); Creatinine, Serum 0.74 mg/dL (0.70-1.30); EST Glomerular Filtration Rate 113 mL/min (>60); Est Glom Filt Rate - Afr Amer 136 mL/min (>60); Glucose 120 mg/dL (74-106); Magnesium 2.3 mg/dL (1.6-2.6); Phosphorus 1.3 mg/dL (2.5-4.9); Potassium 3.8 mmol/L (3.5-5.1); Sodium Level 140 mmol/L (136-145)
[2022-01-11 10:19] LABS: Anisocytosis 2+
[2022-01-11 10:20] LABS: Differential Indicated SCAN CRITERIA MET; Hypochromasia 1+
[2022-01-11 13:45] VITALS: BP 147/80; PULSE 88; RESP 16; TEMP 36.6; O2SAT 93
[2022-01-11 20:20] VITALS: BP 152/71; PULSE 88; RESP 18; TEMP 37.1; O2SAT 93
[2022-01-12] MEDS: HYDROmorphone 0.5 MG/0.5 ML SYRINGE IV ×3 (02:39→20:19)
[2022-01-12 05:43] LABS: Absolute Lymphocyte Count 1.02 X10^3/uL (0.83-4.51); Absolute Neutrophil Count 5.8 X10^3/uL (2.0-7.7); Basophil# 0.01 X10^3/uL; Basophil% 0.1 % (0-1); Eosinophil# 0.06 X10^3/uL; Eosinophils% 0.8 % (0-5); Hematocrit 22.7 % (40-54); Hemoglobin 7.7 g/dL (13.0-16.5); Lymphocyte # 1.02 X10^3/ul (0.83-4.51); Lymphocyte % 13.2 % (19-41); Mean Corp Hgb Conc 33.9 g/dL (32-36); Mean Corpuscular Hgb 38.1 pg (27.0-32.0); Mean Corpuscular Volume 112.4 fL (80-94); Mean Platelet Vol. 9.9 fl (6.2-12.0); Monocyte# 0.77 X10^3/uL; NRBC Flagged by Analyzer 0.5 % (0-5); Neutrophil # 5.78 X10^3/uL (2.7-7.7); Neutrophil % 74.9 % (47-70); POSITIVE MORPHOLOGY YES; Platelet Count 152 K/mm3 (150-450); RBC Distribution Width SD 89.7 fl (35.1-43.9); Red Blood Count 2.02 M/mm3 (4.6-6.2); White Blood Count 7.7 K/mm3 (4.4-11.0)
[2022-01-12 05:47] LABS: Differential Indicated SCAN CRITERIA MET
[2022-01-12 06:21] LABS: Anion Gap 5 (5-15); BUN 13 mg/dL (7-18); BUN/Creat Ratio 22.3 RATIO (10-20); Calcium,Total 7.7 mg/dL (8.5-10.1); Chloride 107 mmol/L (98-107); Creatinine, Serum 0.58 mg/dL (0.70-1.30); EST Glomerular Filtration Rate 147 mL/min (>60); Est Glom Filt Rate - Afr Amer 178 mL/min (>60); Glucose 103 mg/dL (74-106); Magnesium 2.1 mg/dL (1.6-2.6); Phosphorus 1.8 mg/dL (2.5-4.9); Potassium 3.9 mmol/L (3.5-5.1); Sodium Level 139 mmol/L (136-145)
[2022-01-12] MEDS: 0.9% Normal Saline 1,000 ML 125 ML IV ×3 (06:30→22:42)
[2022-01-12 06:37] LABS: Anisocytosis 3+; Macrocytosis 3+
[2022-01-12 06:38] LABS: Microcytosis 1+
[2022-01-12 08:00] VITALS: BP 136/78; PULSE 86; RESP 16; TEMP 37.3; O2SAT 94
--- NOTE | 2022-01-12 08:44 | PCM.PN.SRG ---
Subjective Subjective Patient seen and examined during AM rounds. He is initially in the bathroom, but and found sitting in the chair at bedside. He confirms that his nasogastric tube came out yesterday, but denies any return of bowel function. He denies any frequent hiccuping or burping. Positively, he states that he feels he is taking a big step forward from yesterday with improved pain control. He does complain of some mucus getting caught up in the back of his throat and having to forcefully cough to relieve it. He states this has been present since he is been on chemotherapy. Objective Data Objective Data Vital Signs: Vital Signs Temp Pulse Resp BP Pulse Ox 99.2 F H 86 16 136/78 H 94 01/12/22 08:00 01/12/22 08:00 01/12/22 08:00 01/12/22 08:00 01/12/22 08:00 Oxygen Flow Rate (L/min) 2 Oxygen Delivery Method Room Air Weight: 157 lb 10.088 oz Body Mass Index (BMI) 24.7 Intake & Output: Intake and Output for Last 24 Hours 01/10/22 01/11/22 01/12/22 23:59 23:59 23:59 Intake Total 2399.67 / 2399.67 3557 / 3557 1000 / 1000 Output Total 1650 / 1650 2070 / 2070 505 / 505 Balance 749.67 / 749.67 1487 / 1487 495 / 495 Lab / Micro Data Result Diagrams: 01/12/22 04:42 01/12/22 04:42 Labs: Laboratory Results - last 24 hr 01/11/22 09:31: WBC 9.4, RBC 2.27 L, Hgb 8.7 L, Hct 25.5 L, MCV 112.3 H, MCH 38.3 H, MCHC 34.1, RDW Std Deviation 88.6 H, RDW Coeff of Heavenly 22.2 H, Plt Count 157, MPV 10.2, Immature Gran % (Auto) 0.900, Neut % (Auto) 79.0 H, Lymph % (Auto) 9.2 L, [place] % (Auto) 10.4 H, Eos % (Auto) 0.4, Baso % (Auto) 0.1, Absolute Neuts (auto) 7.4, Absolute Lymphs (auto) 0.86, Nucleated RBC % 0.3, Hypochromasia 1+, Anisocytosis 2+ 01/11/22 09:31: Sodium 140, Potassium 3.8, Chloride 106, Carbon Dioxide 27.0, Anion Gap 7, BUN 14, Creatinine 0.74, Estim Creat Clear Calc 63.80, Est GFR (MDRD) Af Amer 136, Est GFR (MDRD) Non-Af 113, BUN/Creatinine Ratio 19.0, Glucose 120 H, Calcium 7.3 L, Phosphorus 1.3 L, Magnesium 2.3 01/12/22 04:42: WBC 7.7, RBC 2.02 L, Hgb 7.7 L, Hct 22.7 L, MCV 112.4 H, MCH 38.1 H, MCHC 33.9, RDW Std Deviation 89.7 H, RDW Coeff of Heavenly 22.0 H, Plt Count 152, MPV 9.9, Immature Gran % (Auto) 1.000 H, Neut % (Auto) 74.9 H, Lymph % (Auto) 13.2 L, [place] % (Auto) 10.0, Eos % (Auto) 0.8, Baso % (Auto) 0.1, Absolute Neuts (auto) 5.8, Absolute Lymphs (auto) 1.02, Nucleated RBC % 0.5, Anisocytosis 3+, Microcytosis 1+, Macrocytosis 3+ 01/12/22 04:42: Sodium 139, Potassium 3.9, Chloride 107, Carbon Dioxide 27.0, Anion Gap 5, BUN 13, Creatinine 0.58 L, Estim Creat Clear Calc 63.80, Est GFR (MDRD) Af Amer 178, Est GFR (MDRD) Non-Af 147, BUN/Creatinine Ratio 22.3 H, Glucose 103, Calcium 7.7 L, Phosphorus 1.8 L, Magnesium 2.1 Micro: Microbiology 01/09/22 20:32 Nasal Secretion SARS-CoV-2 Antigen (Rapid) - Final Physical Exam Const no apparent distress Resp normal respiratory effort Resp Narrative: Forceful, productive cough of whitish sputum GI GI Narrative: Nondistended, small area of bloody drainage strikethrough to laparotomy dressing. Predominantly serous drainage from both small hernia drain and larger peritoneal drain. Abdomen is soft and minimally tender to palpation about laparotomy incision site Assessment & Plan Assessment/Plan (1) Hernia with strangulation: (2) SBO (small bowel obstruction): (3) Anemia: (4) Cough productive of clear sputum: PLAN: Postoperative day 3 from diagnostic laparoscopy converted to exploratory laparotomy with small bowel resection and repair of incisional hernia. Patient recovering as expected with an element of postoperative ileus, but appropriate pain control. Patient has expressed an appetite, but I have cautioned him against returning to a diet too soon. His nasogastric tube was inadvertently dislodged yesterday, but we did not replace and have made him strict n.p.o. Neuro: As needed Dilaudid Pulm/CV: Incentive spirometry, add breathing treatment to help with expectoration of mucus, monitor BP FEN/GI: Continue to monitor electrolytes while patient NPO?we will again replace patient's phosphorus for hypophosphatemia this morning. Continue n.p.o. status until patient passing gas. Strict n.p.o. Patient again encouraged to ambulate frequently to try to stimulate return of bowel function. Heme/ID: Anemia. Hemoglobin down trended further postoperatively?suspect this multifactorial due to some operative losses (some acute blood loss anemia) but also hemodilution. Operative drains continue to clear and are predominantly serous at this point. Patient asymptomatic. We will continue to monitor the daily labs. Endo: No acute issues Proph: Continue SCDs. Hold chemoprophylaxis while patient's hemoglobin down trended Dispo: Continue inpatient status Charges/Coding Visit Charges Inpatient E&M: 06076 Subs Hosp L2
[2022-01-12] MEDS: Ipratropium/Albuterol Sulfate 3 ML AMPUL.NEB INHALATION (12:56)
[2022-01-12 12:57] VITALS: PULSE 78; RESP 18
[2022-01-12 14:00] VITALS: BP 139/81; PULSE 98; RESP 16; TEMP 37.2; O2SAT 93
[2022-01-12 20:10] VITALS: BP 152/77; PULSE 89; RESP 18; TEMP 37.3; O2SAT 96
[2022-01-12] MEDS: 0.9% Saline Lock 10 ML Syringe IV (20:20)
[2022-01-12 22:53] VITALS: BP 148/77; PULSE 92; RESP 18; TEMP 36.8; O2SAT 95
[2022-01-13] MEDS: 0.9% Normal Saline 1,000 ML 125 ML IV ×3 (04:38→20:59)
[2022-01-13 04:40] VITALS: BP 158/80; PULSE 89; RESP 18; TEMP 36.7; O2SAT 97
[2022-01-13 06:16] LABS: Absolute Lymphocyte Count 0.95 X10^3/uL (0.83-4.51); Absolute Neutrophil Count 4.9 X10^3/uL (2.0-7.7); Basophil# 0.02 X10^3/uL; Basophil% 0.3 % (0-1); Eosinophils% 2.9 % (0-5); Hematocrit 23.8 % (40-54); Hemoglobin 8.1 g/dL (13.0-16.5); Lymphocyte # 0.95 X10^3/ul (0.83-4.51); Lymphocyte % 13.7 % (19-41); Mean Corpuscular Hgb 37.7 pg (27.0-32.0); Mean Corpuscular Volume 110.7 fL (80-94); Mean Platelet Vol. 9.4 fl (6.2-12.0); Monocyte# 0.76 X10^3/uL; Monocyte% 10.9 % (0-10); Neutrophil # 4.88 X10^3/uL (2.7-7.7); Neutrophil % 70.2 % (47-70); POSITIVE MORPHOLOGY YES; Platelet Count 173 K/mm3 (150-450); RBC Distribution Width CV 21.8 % (11.6-14.6); RBC Distribution Width SD 86.3 fl (35.1-43.9); Red Blood Count 2.15 M/mm3 (4.6-6.2)
[2022-01-13 06:17] LABS: Differential Indicated SCAN CRITERIA MET
[2022-01-13 06:36] LABS: Anisocytosis 2+
[2022-01-13 06:39] LABS: Anion Gap 7 (5-15); BUN 14 mg/dL (7-18); BUN/Creat Ratio 27.5 RATIO (10-20); Calcium,Total 8.1 mg/dL (8.5-10.1); Chloride 110 mmol/L (98-107); Creatinine, Serum 0.51 mg/dL (0.70-1.30); EST Glomerular Filtration Rate 172 mL/min (>60); Est Glom Filt Rate - Afr Amer 208 mL/min (>60); Glucose 100 mg/dL (74-106); Magnesium 2.1 mg/dL (1.6-2.6); Phosphorus 2.1 mg/dL (2.5-4.9); Potassium 3.3 mmol/L (3.5-5.1); Sodium Level 141 mmol/L (136-145)
[2022-01-13 08:15] VITALS: BP 136/76; PULSE 80; RESP 15; TEMP 37.4; O2SAT 97
--- NOTE | 2022-01-13 08:23 | PCM.PN.SRG ---
Subjective Subjective Patient evaluated sitting comfortably in the chair. He notes passing flatus overnight and two small bowel movements. Patient denies nausea, vomiting. He denies cough, shortness of breath. He notes some soreness of the abdomen. He notes he is urinating well. Overnight the drain sponge became soaked and needed to be changed. Objective Data Objective Data Vital Signs: Vital Signs Temp Pulse Resp BP Pulse Ox 98.1 F 89 18 158/80 H 97 01/13/22 04:40 01/13/22 04:40 01/13/22 04:40 01/13/22 04:40 01/13/22 04:40 Oxygen Flow Rate (L/min) 2 Oxygen Delivery Method Room Air Weight: 157 lb 10.088 oz Body Mass Index (BMI) 24.7 Intake & Output: Intake and Output for Last 24 Hours 01/11/22 01/12/22 01/13/22 23:59 23:59 23:59 Intake Total 3557 / 3557 2958.25 / 2958.25 1187.50 / 1187.50 Output Total 2069 / 2069 515 / 515 Balance 1487 / 1487 2443.25 / 2443.25 1187.50 / 1187.50 Lab / Micro Data Result Diagrams: 01/13/22 05:35 01/13/22 05:35 Labs: Laboratory Results - last 24 hr 01/13/22 05:35: WBC 7.0, RBC 2.15 L, Hgb 8.1 L, Hct 23.8 L, MCV 110.7 H, MCH 37.7 H, MCHC 34.0, RDW Std Deviation 86.3 H, RDW Coeff of Heavenly 21.8 H, Plt Count 173, MPV 9.4, Immature Gran % (Auto) 2.000 H, Neut % (Auto) 70.2 H, Lymph % (Auto) 13.7 L, [place] % (Auto) 10.9 H, Eos % (Auto) 2.9, Baso % (Auto) 0.3, Absolute Neuts (auto) 4.9, Absolute Lymphs (auto) 0.95, Nucleated RBC % 1.0, Anisocytosis 2+ 01/13/22 05:35: Sodium 141, Potassium 3.3 L, Chloride 110 H, Carbon Dioxide 24.0, Anion Gap 7, BUN 14, Creatinine 0.51 L, Estim Creat Clear Calc 63.80, Est GFR (MDRD) Af Amer 208, Est GFR (MDRD) Non-Af 172, BUN/Creatinine Ratio 27.5 H, Glucose 100, Calcium 8.1 L, Phosphorus 2.1 L, Magnesium 2.1 Micro: Microbiology 01/09/22 20:32 Nasal Secretion SARS-CoV-2 Antigen (Rapid) - Final Physical Exam GI GI Narrative: Abdomen- 2 incisions c/d/i. Minimal amount of dried blood noted at the midline. KACI drain with minimal serosanguineous fluid. Serous fluid draining around the tubing of the drain. Abdomen tender around the incisions. Non-distended, soft. Bowel sounds present. Assessment & Plan Assessment/Plan (1) Hernia with strangulation: PLAN: Labs reviewed replacing potassium and phosphate. Repeat CBC, BMP, phos and mag will be ordered for tomorrow morning. Bowel function returned with passing flatus and 2 bowel movements. Will start clear liquids this morning. Cough resolved with breathing treatments Continue with ambulation We will continue to monitor patient. Patient making good progress. Charges/Coding Visit Charges Inpatient E&M: 98411 Subs Hosp L1 (post-op)
[2022-01-13] MEDS: Ensure Clear 120 ML Liquid PO ×2 (10:00→13:36)
[2022-01-13 14:15] VITALS: BP 142/74; PULSE 79; RESP 15; TEMP 37.7; O2SAT 95
[2022-01-13 14:18] LABS: Potassium 3.7 mmol/L (3.5-5.1)
[2022-01-13 20:32] VITALS: BP 125/67; PULSE 80; RESP 18; TEMP 37.4; O2SAT 94
[2022-01-13] MEDS: Acetaminophen 500 MG Tablet PO (22:22)
[2022-01-14 03:33] VITALS: BP 148/78; PULSE 83; RESP 18; TEMP 36.9; O2SAT 93
[2022-01-14] MEDS: 0.9% Normal Saline 1,000 ML 125 ML IV (03:36)
[2022-01-14 06:04] LABS: Absolute Lymphocyte Count 1.03 X10^3/uL (0.83-4.51); Absolute Neutrophil Count 4.3 X10^3/uL (2.0-7.7); Basophil# 0.02 X10^3/uL; Basophil% 0.3 % (0-1); Eosinophil# 0.39 X10^3/uL; Eosinophils% 5.9 % (0-5); Hemoglobin 7.8 g/dL (13.0-16.5); Lymphocyte # 1.03 X10^3/ul (0.83-4.51); Lymphocyte % 15.5 % (19-41); Mean Corp Hgb Conc 33.9 g/dL (32-36); Mean Corpuscular Hgb 37.5 pg (27.0-32.0); Mean Corpuscular Volume 110.6 fL (80-94); Mean Platelet Vol. 10.3 fl (6.2-12.0); Monocyte# 0.81 X10^3/uL; Monocyte% 12.2 % (0-10); NRBC Flagged by Analyzer 1.4 % (0-5); Neutrophil # 4.28 X10^3/uL (2.7-7.7); Neutrophil % 64.6 % (47-70); POSITIVE MORPHOLOGY YES; Platelet Count 189 K/mm3 (150-450); RBC Distribution Width CV 21.7 % (11.6-14.6); RBC Distribution Width SD 87.3 fl (35.1-43.9); Red Blood Count 2.08 M/mm3 (4.6-6.2); White Blood Count 6.6 K/mm3 (4.4-11.0)
[2022-01-14 06:08] LABS: Differential Indicated SCAN CRITERIA MET
[2022-01-14 06:17] LABS: Anisocytosis 3+; Macrocytosis 3+
[2022-01-14 06:18] LABS: Microcytosis 1+
[2022-01-14] MEDS: Acetaminophen 500 MG Tablet PO ×2 (06:27→13:42)
[2022-01-14 06:30] LABS: Anion Gap 6 (5-15); BUN 12 mg/dL (7-18); BUN/Creat Ratio 20.3 RATIO (10-20); Calcium,Total 7.8 mg/dL (8.5-10.1); Chloride 110 mmol/L (98-107); Creatinine, Serum 0.59 mg/dL (0.70-1.30); EST Glomerular Filtration Rate 145 mL/min (>60); Est Glom Filt Rate - Afr Amer 176 mL/min (>60); Glucose 101 mg/dL (74-106); Magnesium 1.7 mg/dL (1.6-2.6); Phosphorus 2.3 mg/dL (2.5-4.9); Potassium 3.5 mmol/L (3.5-5.1); Sodium Level 142 mmol/L (136-145)
--- NOTE | 2022-01-14 08:55 | PCM.PN.SRG ---
Subjective Subjective Patient seen and examined during AM rounds. He is found resting in bed. He reports that he slept very well overnight. He states that he did have a couple of bowel movements between last night and early this morning. His bowel movements are described somewhat darker than normal but he denies noting any blood. He denies any nausea or vomiting response to the liquid diet. Objective Data Objective Data Vital Signs: Vital Signs Temp Pulse Resp BP Pulse Ox 98.5 F 83 18 148/78 H 93 01/14/22 03:33 01/14/22 03:33 01/14/22 03:33 01/14/22 03:33 01/14/22 03:33 Oxygen Flow Rate (L/min) 2 Oxygen Delivery Method Room Air Weight: 157 lb 10.088 oz Body Mass Index (BMI) 24.7 Intake & Output: Intake and Output for Last 24 Hours 01/12/22 01/13/22 01/14/22 23:59 23:59 23:59 Intake Total 2958.25 / 2958.25 2831.16 / 2831.16 827.08 / 827.08 Output Total 515 / 515 10 / 10 Balance 2443.25 / 2443.25 2821.16 / 2821.16 827.08 / 827.08 Lab / Micro Data Result Diagrams: 01/14/22 05:47 01/14/22 05:47 Labs: Laboratory Results - last 24 hr 01/13/22 13:53: Potassium 3.7 01/14/22 05:47: WBC 6.6, RBC 2.08 L, Hgb 7.8 L, Hct 23.0 L, MCV 110.6 H, MCH 37.5 H, MCHC 33.9, RDW Std Deviation 87.3 H, RDW Coeff of Heavenly 21.7 H, Plt Count 189, MPV 10.3, Immature Gran % (Auto) 1.500 H, Neut % (Auto) 64.6, Lymph % (Auto) 15.5 L, [place] % (Auto) 12.2 H, Eos % (Auto) 5.9 H, Baso % (Auto) 0.3, Absolute Neuts (auto) 4.3, Absolute Lymphs (auto) 1.03, Nucleated RBC % 1.4, Anisocytosis 3+, Microcytosis 1+, Macrocytosis 3+ 01/14/22 05:47: Sodium 142, Potassium 3.5, Chloride 110 H, Carbon Dioxide 26.0, Anion Gap 6, BUN 12, Creatinine 0.59 L, Estim Creat Clear Calc 63.80, Est GFR (MDRD) Af Amer 176, Est GFR (MDRD) Non-Af 145, BUN/Creatinine Ratio 20.3 H, Glucose 101, Calcium 7.8 L, Phosphorus 2.3 L, Magnesium 1.7 Micro: Microbiology 01/09/22 20:32 Nasal Secretion SARS-CoV-2 Antigen (Rapid) - Final Physical Exam Const no apparent distress Resp normal respiratory effort GI GI Narrative: Nondistended, surgical sites are initially covered by clean dressing. Beneath, the incisions remain well approximated with skin siobhan. There is no surrounding erythema. There is no drainage from the wounds including the right lower quadrant drain site. There is evidence of prior serous drainage from the site. Patient is largely nontender to palpation. Assessment & Plan Assessment/Plan (1) Hernia with strangulation: (2) SBO (small bowel obstruction): (3) Anemia: (4) Cough productive of clear sputum: PLAN: Postoperative day 5 from diagnostic laparoscopy converted to exploratory laparotomy with small bowel resection and repair of incisional hernia. Patient had return of bowel function yesterday was advanced to a clear liquid diet. This he tolerated without issue and continues to have regular loose stools. Neuro: As needed Tylenol and oxycodone Pulm/CV: Incentive spirometry, add breathing treatment to help with expectoration of mucus, monitor BP FEN/GI: We will advance to a soft, low residue diet with Ensure supplements. Heme/ID: Anemia. Hemoglobin now stabilizing. Operative drains c discontinued. Patient asymptomatic. We will continue to monitor the daily labs. Endo: No acute issues Proph: Continue SCDs. Hold chemoprophylaxis while patient's hemoglobin down trended Dispo: Plan for discharge later today Charges/Coding Visit Charges Inpatient E&M: 38592 Subs Hosp L2
--- NOTE | 2022-01-14 09:22 | DCINST_ITS ---
Discharge Instructions Diet Discharge Diet: Soft diet (Low fiber x2 weeks) Activity Discharge Activity: May Not Drive (No driving while taking narcotic pain medication) and May Shower Ice area for (Minutes): 20 Lifting Restrictions: No lifting greater than 10 pounds for the next 4 weeks Dressing / Incision Call your doctor if your incision/area has: Continuous Slow Oozing, Increased Pain/ Swelling, Increased Redness, Foul Smelling Discharge and Swelling at the incision site Call your doctor if you observe: Fever of 101 or Higher Suture Line Care: Avoid Pulling/Pushing and Avoid Pinching/Bending Change Dressing in: Once daily Cleanse incision/area with: Soap & Water (Pat dry) Additional Dressing/Incision Instructions:: Covered during the day and use abdominal binder. Leave open at night Follow Up Care Please Follow Up With: Jose Dai MD When: 1 week Test Results: Test results from this visit will be discussed in further detail a t your follow-up appointment, if applicable. Discharge Plan Admission Admit Date/Time: 01/09/22 20:38 Primary Reason for Your Visit: Incarcerated/strangulated hernia Attending Provider: Jose Dai Primary Care Provider: Matheus Renee Instructions Patient Instructions: Low-Fiber Diet, Hernia Repair Open Dc Discharge Orders/Prescriptions Prescriptions: New oxycodone 5 mg capsule 5 mg PO Q6H PRN (Reason: pain) 3 Days Qty: 7 RF: 0 Continued cyanocobalamin (vitamin B-12) 2,500 MCG tablet 2,500 mcg PO DAILY RF: 0 Referrals / Follow Up: Matheus Renee MD [Primary Care Provider] - Disposition Disposition (needs filled in before D/C Order can be placed): Home, Self Care
--- NOTE | 2022-01-14 09:33 | DS.PCM_ITS ---
Providers Date of Admission: 01/09/22 Primary Care Physician: Dr. Matheus Renee MD Reason For Visit: INCARCERATED INCISIONAL HERNIA Diagnosis Discharge Diagnosis (1) Hernia with strangulation: Status: Acute Code(s): K46.0 - Unspecified abdominal hernia with obstruction, without gangrene (2) SBO (small bowel obstruction): Status: Acute Code(s): K56.609 - Unspecified intestinal obstruction, unspecified as to partial versus complete obstruction (3) Anemia: Status: Acute Code(s): D64.9 - Anemia, unspecified (4) Cough productive of clear sputum: Status: Acute Code(s): R05.8 - Other specified cough Medications at Discharge Home Medications cyanocobalamin (vitamin B-12) 2,500 mcg PO DAILY 08/27/19 oxycodone 5 mg PO Q6H PRN 3 Days #7 cap 01/14/22 Hospital Course Operations - (Exploratory laparotomy with small bowel resection, reanastomosis, and repair of incisional hernia) Summary of Care Provided Minutes Spent on Discharge: 20 Hospital Course: Patient was admitted on 01/09/2022 after signs and symptoms of a incarcerated incisional hernia with obstruction were found. Patient proceeded emergently to the operating room due to question of possible strangulation of bowel/hernia contents. Beginning with diagnostic laparoscopy, patient was found to have infarcted small bowel and thus the surgery was converted to an exploratory laparotomy with small bowel resection and incisional hernia repair. Patient was admitted postoperatively to the medical surgical floor. Is initially prescribed n.p.o. status with nasogastric tube decompression. Patient's laboratories were monitored daily with routine blood work and electrolytes were corrected as necessary. On postoperative day 4, patient had return of bowel function and his diet was advanced. He tolerated this advancement to clear liquids without issue and continued to have loose stools. Additionally, the last of his 2 surgical drains was removed given that it had exhibited largely serous output for several days. On the morning of postoperative day 5, patient stated that he had reached a point where he now felt well enough to go home and was comfortable with his discharge instructions. Therefore, discharge was granted with direction to return for outpatient follow-up in 1 week. Weight / BMI Weight Weight: 157 lb 10.088 oz Body Mass Index (BMI) 24.7 ABG / Lab / Microbiology Data Result Diagrams: 01/14/22 05:47 01/14/22 05:47 Laboratory: Laboratory Results - last 24 hr 01/13/22 13:53: Potassium 3.7 01/14/22 05:47: WBC 6.6, RBC 2.08 L, Hgb 7.8 L, Hct 23.0 L, MCV 110.6 H, MCH 37.5 H, MCHC 33.9, RDW Std Deviation 87.3 H, RDW Coeff of Heavenly 21.7 H, Plt Count 189, MPV 10.3, Immature Gran % (Auto) 1.500 H, Neut % (Auto) 64.6, Lymph % (Auto ) 15.5 L, [place] % (Auto) 12.2 H, Eos % (Auto) 5.9 H, Baso % (Auto) 0.3, Absolute Neuts (auto) 4.3, Absolute Lymphs (auto) 1.03, Nucleated RBC % 1.4, Anisocytosis 3+, Microcytosis 1+, Macrocytosis 3+ 01/14/22 05:47: Sodium 142, Potassium 3.5, Chloride 110 H, Carbon Dioxide 26.0, Anion Gap 6, BUN 12, Creatinine 0.59 L, Estim Creat Clear Calc 63.80, Est GFR (MDRD) Af Amer 176, Est GFR (MDRD) Non-Af 145, BUN/Creatinine Ratio 20.3 H, Glucose 101, Calcium 7.8 L, Phosphorus 2.3 L, Magnesium 1.7 Microbiology: Microbiology 01/09/22 20:32 Nasal Secretion SARS-CoV-2 Antigen (Rapid) - Final D/C Instructions Discharge Diet: Soft diet (Low fiber x2 weeks) Ice area for (Minutes): 20 Call your doctor if your incision/area has: Continuous Slow Oozing, Increased Pain/ Swelling, Increased Redness, Foul Smelling Discharge and Swelling at the incision site Call your doctor if you observe: Fever of 101 or Higher Suture Line Care: Avoid Pulling/Pushing and Avoid Pinching/Bending Cleanse incision/area with: Soap & Water (Pat dry) Additional Dressing/Incision Instructions: Covered during the day and use abdominal binder. Leave open at night Please Follow Up With: Jose Dai MD When: 1 week Meaningful Use Info Meaningful Use Diagnoses (Choose all that apply): None applicable Discharge Plan Admission Admit Date/Time: 01/09/22 20:38 Primary Reason for Your Visit: Incarcerated/strangulated hernia Attending Provider: Jose Dai Primary Care Provider: Matheus Renee Instructions Patient Instructions: Low-Fiber Diet, Hernia Repair Open Dc Discharge Orders/Prescriptions Prescriptions: New oxycodone 5 mg capsule 5 mg PO Q6H PRN (Reason: pain) 3 Days Qty: 7 RF: 0 Continued cyanocobalamin (vitamin B-12) 2,500 MCG tablet 2,500 mcg PO DAILY RF: 0 Referrals / Follow Up: Matheus Renee MD [Primary Care Provider] - Disposition Disposition (needs filled in before D/C Order can be placed): Home, Self Care
[2022-01-14 09:35] VITALS: BP 141/78; PULSE 76; RESP 15; TEMP 37.3; O2SAT 98
--- NOTE | 2022-01-14 10:43 | PHA.DC.MC ---
Pharmacy Service has performed discharge medication reconciliation and counseling for this patient. 1. OXYCODONE 5MG PO Q6H PRN PAIN The patient's discharge medication list was reviewed for discrepancies and discrepancies were resolved. Home Medications cyanocobalamin (vitamin B-12) 2,500 mcg PO DAILY 08/27/19 oxycodone 5 mg PO Q6H PRN 3 Days #7 cap 01/14/22 The patient was counseled on the following discharge medications and changes in medications for homegoing were reviewed. The Reason for Use, instructions for use, and potential side effects were reviewed for all new medications. The patient's questions regarding all of their medications were answered. The patient was able to verbally demonstrate an understanding of their discharge medications.
--- NOTE | 2022-01-14 11:00 | CASEMGMT ---
MARK CM in to pt room, pt sitting up in chair. States he is ready to go home. States his pain is under control and he has no homegoing needs.
[2022-01-14 14:00] VITALS: BP 152/83; PULSE 85; RESP 15; TEMP 36.9; O2SAT 99
== END 2022-01-14 14:13 | disposition home or self-care (01) | DRG 326 ==
LOC: ED 19:17 → SDC 19:22 → ACINP 19:34 → MS3 19:45 → SDC 20:57 → MS3 20:58
PROVIDERS: Physician Assistant; Admitting Provider Surgery; Emergency Provider Emergency Medicine; PCP Family Medicine; Visit Provider Surgery
PROC: 0DJ64ZZ Inspection of Stomach, Percutaneous Endoscopic Approach (ICD-10-PCS; CPT 49320; principal; 2022-01-09 21:15)
DX: K43.0 Incisional hernia with obstruction, without gangrene (principal); K55.021 Focal (segmental) acute infarction of small intestine; C18.9 Malignant neoplasm of colon, unspecified; C78.7 Secondary malignant neoplasm of liver and intrahepatic bile duct; D62 Acute posthemorrhagic anemia; E83.39 Other disorders of phosphorus metabolism; Z90.49 Acquired absence of other specified parts of digestive tract; Z87.891 Personal history of nicotine dependence; Z79.899 Other long term (current) drug therapy; Z53.31 Laparoscopic surgical procedure converted to open procedure; R05.8 Other specified cough
CPT/HCPCS: 36415; 74177; 80048; 80053; 81001; 83605; 83690; 83735; 84100; 84132; 85025; 87811; 88302; 88304; 88305; 88307; 94640; 97802; 99251; 99285; J7030; J7050; J7120; Q9967; A4216; G0463; J2405

== ENCOUNTER 2024-01-26 17:42 | Observation (INO) | payer MEDICARE, SELFPAY ==
[2024-01-26 17:42] VITALS: BP 139/80; PULSE 76; RESP 16; TEMP 36.6; O2SAT 98
[2024-01-26 17:44] VITALS: BMI 19.8
[2024-01-26 18:36] LABS: Absolute Lymphocyte Count 1.36 X10^3/uL (0.83-4.51); Absolute Neutrophil Count 6.8 X10^3/uL (2.0-7.7); Basophil# 0.03 X10^3/uL; Basophil% 0.3 % (0-1); Eosinophil# 0.03 X10^3/uL; Eosinophils% 0.3 % (0-5); Hematocrit 27.6 % (40-54); Hemoglobin 8.7 g/dL (13.0-16.5); Lymphocyte # 1.36 X10^3/ul (0.83-4.51); Lymphocyte % 14.8 % (19-41); Mean Corp Hgb Conc 31.5 g/dL (32-36); Mean Corpuscular Hgb 30.4 pg (27.0-32.0); Mean Corpuscular Volume 96.5 fL (80-94); Mean Platelet Vol. 8.7 fl (6.2-12.0); Monocyte# 0.92 X10^3/uL; NRBC Flagged by Analyzer 0.7 % (0-5); Neutrophil # 6.77 X10^3/uL (2.7-7.7); Neutrophil % 74.1 % (47-70); POSITIVE MORPHOLOGY YES; Platelet Count 236 K/mm3 (150-450); RBC Distribution Width SD 76.5 fl (35.1-43.9); Red Blood Count 2.86 M/mm3 (4.6-6.2); White Blood Count 9.2 K/mm3 (4.4-11.0)
--- NOTE | 2024-01-26 18:36 | CT_ITS ---
STUDY: CT BRAIN WITHOUT CONTRAST REASON FOR EXAM: Male, 68 years old. ams RADIATION DOSAGE (If Supplied By Facility): CTDIvol = ( 44.99 ) mGy, DLP = ( 829.85 ) mGycm TECHNIQUE: Transaxial CT imaging of the brain was performed without administration of intravenous contrast material. Individualized dose optimization techniques were used for this CT. COMPARISON: No relevant priors. FINDINGS: Normal soft tissue structures. Normal calvarium. Normal size ventricles and extra-axial spaces for the patient''s age. Normal white matter tracts of the cerebral hemispheres. Normal basal ganglia and thalami. Normal brainstem. Normal cerebellum. There is no intracranial hemorrhage. There are no findings of an acute ischemic infarction. Normal visualized paranasal sinuses. CT/Brain/Head without Contrast IMPRESSION: Normal unenhanced CT scan of the brain. Electronically Signed: Mukul Mcallister MD at 19:23 EDT ,
[2024-01-26 18:40] LABS: Differential Indicated SCAN CRITERIA MET
--- NOTE | 2024-01-26 18:40 | EDS_ITS ---
HPI History of Present Illness Chief Complaint: Confusion Narrative Narrative: 68-year-old male presenting with metastatic colon cancer to the lungs, liver, bowel. He states he feels generally weak. He states he sees Dr. Vargas and has been on chemotherapy for 8-1/2 years. He states he basically has become immune to all of them but they have him on oral pill now which he is taking. He states that he has difficulty walking and caring for himself at home. He has been sleeping a lot more. His home health care nurse spoke with Dr. Vargas and he recommended the patient come to the ER. Patient states he does not have any fevers or chills. He is not nauseous. He just has generalized fatigue. [facility] Medical History Incarcerated incisional hernia Anemia Colon cancer Home Medications ?Medication ?Instructions ?Recorded ?Last Taken ?Type cyanocobalamin (vitamin B-12) 2,500 mcg PO DAILY 08/27/19 Unknown History 2,500 mcg tablet oxycodone 5 mg capsule 5 mg PO Q6H PRN pain 3 days #7 caps 01/14/22 Unknown Rx Allergy/AdvReac Type Severity Reaction Status Date / Time No Known Allergies Allergy Verified 01/26/24 17:44 Surgical History History of incisional hernia repair History of exploratory laparotomy History of incisional hernia repair Social History Smoking Status: Former smoker ROS ROS ED Constitutional Constitutional ED: Denies chills, fever(s) or sweats Eyes Eyes: Denies blurry vision or change in vision ENT ENT ED: Denies ear pain or sore throat Cardiovascular Cardiovascular: Denies chest pain, palpitations or racing heartbeat Respiratory/Chest Respiratory/Chest: Denies cough, dyspnea or sputum Gastrointestinal Gastrointestinal: Denies abdominal pain, constipation, diarrhea, nausea or vomiting Genitourinary Genitourinary ED: Denies dysuria, hematuria or urinary frequency Musculoskeletal Musculoskeletal: Denies arthralgias, myalgias or neck pain Integumentary Denies abscess, Abrasions or rash Neurologic Neurologic: Denies headache(s), paresthesias or weakness Psychiatric Psychiatric: Denies anxiety, depression, suicidal ideation or suicidal thoughts Endocrine Endocrinology: Denies polydipsia or polyuria EXAM Physical Exam Const Vital Signs: 01/26/24 17:42 01/26/24 20:00 Temperature 97.8 F 98.3 F Temperature Source Temporal Oral Pulse Rate 76 Respiratory Rate 16 18 Blood Pressure 139/80 H 156/82 H Blood Pressure Mean 99 106 Pulse Ox 98 95 Oxygen Delivery Method Room Air Room Air Positive well nourished General Appearance ED: NAD HEENT Reports moist mucous membranes Eyes PERRL and EOMs intact bilaterally General Eye ED: Negative for pale conjunctiva Chest Wall inspection of chest normal Resp normal respiratory effort and clear to auscultation bilaterally Auscultation: Negative for rales, rhonchi or wheezes Cardio regular rate and regular rhythm Neuro oriented x3 and CN's II-XII intact bilaterally Psych mental status grossly normal Skin no rashes or lesions noted MDM MDM MDM Narrative Medical decision making narrative: Patient with history of metastatic cancer which is primarily colon cancer. Presenting with weakness today and debility. He likely will need to be placed. He states that he is confused and feels like if he tells me a story that 10 minutes he may not remember telling it. Denies any trauma. He does not think he has had any metastases to the brain. CBC will be obtained to assess white blood cell count, hemoglobin, platelets. CMP to assess liver function, renal function, glucose, electrolytes. High-sensitivity troponin EKG to assess for ischemia/dysrhythmia. Chest x-ray to rule out pneumonia or other acute process. Urinalysis to assess for UTI. Ammonia level to assess for hyperammonemia. CT brain will be obtained to assess for metastases. Patient medicated with IV fluids. CBC shows normal white blood cell count 9.2. Hemoglobin 8.7 near baseline. Platelets are 236. Renal function and electrolytes unremarkable. LFTs normal with exception of alk phos of 148. Ammonia level is 26. Lipase is 12. Chest x-ray my interpretation shows multiple metastases. Radiology inter prets and agrees. CT brain was interpreted as negative. Given the patient's stability discussed with the hospitalist for admission Impression: 1. Metastatic colon cancer 2. Debility Lab Data Labs: Laboratory Results - last 24 hr 01/26/24 01/26/24 18:25 18:48 WBC 9.2 RBC 2.86 L Hgb 8.7 L Hct 27.6 L MCV 96.5 H MCH 30.4 MCHC 31.5 L RDW Std Deviation 76.5 H RDW Coeff of Heavenly 22.0 H Plt Count 236 MPV 8.7 Immature Gran % (Auto) 0.500 Neut % (Auto) 74.1 H Lymph % (Auto) 14.8 L [place] % (Auto) 10.0 Eos % (Auto) 0.3 Baso % (Auto) 0.3 Absolute Neuts (auto) 6.8 Absolute Lymphs (auto) 1.36 Nucleated RBC % 0.7 Differential Comment SCANNED Hypochromasia 1+ Anisocytosis 2+ Microcytosis 1+ Macrocytosis 1+ Sodium 136 Potassium 3.8 Chloride 98 Carbon Dioxide 33.0 H Anion Gap 5 BUN 18 Creatinine 0.62 L Estim Creat Clear Calc 69.88 Est GFR (MDRD) Af Amer 166 Est GFR (MDRD) Non-Af 137 BUN/Creatinine Ratio 29.2 H Glucose 97 Calcium 9.2 Total Bilirubin 0.80 AST 45 H ALT 33 Alkaline Phosphatase 148 H Ammonia 26.0 Troponin I High Sens 4 Total Protein 6.4 Albumin 2.1 L Globulin 4.3 H Albumin/Globulin Ratio 0.5 L Lipase 12 L Radiography Diagnostic Testing: Clinical Impression(s) from Imaging Studies Brain CT 01/26/24 18:36 IMPRESSION: Normal unenhanced CT scan of the brain. Electronically Signed: Mukul Mcallister MD at 19:23 EDT Reading Location ID and State: [id number] / [employer] Tel , Service support , Chest X-Ray 01/26/24 18:55 IMPRESSION: Severe pulmonary parenchymal metastases. Electronically Signed: Mukul Mcallister MD at 19:20 EDT , Discharge Plan Triage Chief Complaint: Confusion ED Provider: Arik Aldana Dx/Rx/DC Orders Prescriptions: No Action cyanocobalamin (vitamin B-12) 2,500 MCG tablet 2,500 mcg PO DAILY oxycodone 5 mg capsule 5 mg PO Q6H PRN (Reason: pain) 3 Days Qty: 7 0RF Primary Care Provider: Matheus Renee Referrals: Matheus Renee MD [Primary Care Provider] - Print Language: [place]
[2024-01-26] MEDS: 0.9% Normal Saline (1000mL) 1,000 ML 999 ML IV (18:45)
--- NOTE | 2024-01-26 18:55 | RAD_ITS ---
STUDY: X-RAY CHEST REASON FOR EXAM: Male, 68 years old. weakness TECHNIQUE: Single AP portable view of the chest. COMPARISON: None. FINDINGS: Right subclavian chest port. Innumerable nodules of various sizes throughout both lungs worrisome for metastatic disease. There is no demonstrated pleural abnormality. Normal size heart. Normal mediastinum and ellen. Normal visualized pulmonary arteries. Normal visualized aortic arch and descending thoracic aorta. Normal visualized thoracic spine. Normal visualized ribs, clavicles, and shoulders. There is no demonstrated abnormality of the visualized soft tissue structures of the upper abdomen. RAD/Chest 1 View (Portable) IMPRESSION: Severe pulmonary parenchymal metastases. Electronically Signed: Mukul Mcallister MD at 19:20 EDT ,
[2024-01-26 18:57] LABS: ALB/GLOB Ratio 0.5 RATIO (0.9-2.4); AST(SGOT) 45 U/L (15-37); Alanine Aminotransfer ALT/SGPT 33 U/L (16-61); Albumin, Serum 2.1 g/dL (3.2-5.0); Alkaline Phosphatase 148 U/L (45-117); Anion Gap 5 (5-15); BUN 18 mg/dL (7-18); BUN/Creat Ratio 29.2 RATIO (10-20); Calcium,Total 9.2 mg/dL (8.5-10.1); Chloride 98 mmol/L (98-107); Creatinine, Serum 0.62 mg/dL (0.70-1.30); EST Glomerular Filtration Rate 137 mL/min (>60); Est Glom Filt Rate - Afr Amer 166 mL/min (>60); Estimated Creatinine Clearance 69.88 ml/min; Globulin 4.3 g/dL (2.2-4.2); Glucose 97 mg/dL (74-106); Lipase 12 U/L (13-75); Potassium 3.8 mmol/L (3.5-5.1); Protein, Total 6.4 g/dL (6.4-8.2); Sodium Level 136 mmol/L (136-145); Troponin-I HS 4 pg/mL (3.0-78.0)
[2024-01-26 19:30] LABS: Anisocytosis 2+; Differential Comment SCANNED; Hypochromasia 1+; Macrocytosis 1+; Microcytosis 1+
[2024-01-26 20:00] VITALS: BP 156/82; RESP 18; TEMP 36.8; O2SAT 95
[2024-01-26 20:55] VITALS: BP 146/95; PULSE 75; RESP 18; TEMP 36.7; O2SAT 96
--- NOTE | 2024-01-26 21:27 | HP.PCM.HOS_ITS ---
HPI - General General Date of Admission: 01/26/24 Date of Service: 01/26/24 Chief Complaint: weakness. HPI Narrative LY COLON, is a 68 M who presents with feeling weakness and having difficulty remembering things that he would say. So he presents to the emergency room and had a head CT that showed no acute process. Chest x-ray shows diffuse pulmonary metastases. Patient does state that he has progressively gotten more short of breath, has lost weight. [facility] Medical History (Updated 01/26/24 @ 21:[address] Matheus Shannon DO) Incarcerated incisional hernia Anemia Colon cancer Home Medications ?Medication ?Instructions ?Recorded ?Last Taken ?Type cyanocobalamin (vitamin B-12) 2,500 mcg PO DAILY 08/27/19 Unknown History 2,500 mcg tablet hydroxyzine HCl 10 mg tablet 10 mg PO Q8 allergies 01/26/24 Unknown History rivaroxaban 20 mg tablet (Xarelto) 20 mg PO QPM 01/26/24 Unknown History Allergy/AdvReac Type Severity Reaction Status Date / Time No Known Allergies Allergy Verified 01/26/24 17:44 Family History (Updated 01/26/24 @ 21:[address] Matheus Shannon DO) Brother Pneumonia Surgical History History of incisional hernia repair History of exploratory laparotomy History of incisional hernia repair Social History Smoking Status: Former smoker ROS ROS Narrative Early satiety. Weight loss. Abdominal pain. All review of systems were negative except as mentioned above in the history of present illness and the other review of systems. Vital Signs Vital Signs Vital Signs: 01/26/24 17:42 01/26/24 20:00 01/26/24 20:55 Temperature 36.6 C 36.8 C 36.7 C Temperature Source Temporal Oral Pulse Rate 76 75 Respiratory Rate 16 18 18 Blood Pressure 139/80 H 156/82 H 146/95 H Blood Pressure Mean 99 106 112 Pulse Ox 98 95 96 Oxygen Delivery Method Room Air Room Air Weight Weight: 57.5 kg Body Mass Index (BMI) 19.8 Physical Exam Const alert and no apparent distress Constitutional Narrative: Nontoxic HEENT normocephalic and head/scalp atraumatic Eyes Eyes Narrative: No icterus Resp normal respiratory effort and no retractions GI GI Narrative: Slightly distended but not tight. Multiple nodules palpated throughout his abdomen. Results Lab / Micro Data Attestation: I reviewed the patient's lab results. 01/26/24 18:25 01/26/24 18:25 Labs: Laboratory Results - last 24 hr 01/26/24 18:25: WBC 9.2, RBC 2.86 L, Hgb 8.7 L, Hct 27.6 L, MCV 96.5 H, MCH 30.4, MCHC 31.5 L, RDW Std Deviation 76.5 H, RDW Coeff of Heavenly 22.0 H, Plt Count 236, MPV 8.7, Immature Gran % (Auto) 0.500, Neut % (Auto) 74.1 H, Lymph % (Auto) 14.8 L, [place] % (Auto) 10.0, Eos % (Auto) 0.3, Baso % (Auto) 0.3, Absolute Neuts (auto) 6.8, Absolute Lymphs (auto) 1.36, Nucleated RBC % 0.7, Differential Comment SCANNED, Hypochromasia 1+, Anisocytosis 2+, Microcytosis 1+, Macrocytosis 1+, Sodium 136, Potassium 3.8, Chloride 98, Carbon Dioxide 33.0 H, Anion Gap 5, BUN 18, Creatinine 0.62 L, Estim Creat Clear Calc 69.88, Est GFR (MDRD) Af Amer 166, Est GFR (MDRD) Non-Af 137, BUN/Creatinine Ratio 29.2 H, Glucose 97, Calcium 9.2, Total Bilirubin 0.80, AST 45 H, ALT 33, Alkaline Phosphatase 148 H, Troponin I High Sens 4, Total Protein 6.4, Albumin 2.1 L, G lobulin 4.3 H, Albumin/Globulin Ratio 0.5 L, Lipase 12 L 01/26/24 18:48: Ammonia 26.0 Imaging Radiology Impression Brain CT 01/26/24 18:36 IMPRESSION: Normal unenhanced CT scan of the brain. Electronically Signed: Mukul Mcallister MD at 19:23 EDT , Chest X-Ray 01/26/24 18:55 IMPRESSION: Severe pulmonary parenchymal metastases. Electronically Signed: Mukul Mcallister MD at 19:20 EDT , Chest x-ray personally reviewed and shows multiple metastatic lesions throughout. Reviewing previous images from 2019 there is no evidence of any clear obvious metastatic lesion at that time. Assessment & Plan Assessment/Plan (1) Colon cancer: PLAN: Plan Stage IV colon cancer * Patient has numerous multiple metastatic lesions in his lungs. Head CT did not show any acute process. I do not know if the patient does have carcinomatosis but I do palpate some subcutaneous nodules. Unclear if those are actually malignant or not. * Patient has been on numerous chemotherapy and over the past 2 weeks has been started on oral regimen. Despite being started on his oral regimen his weakness has worsened. * I had a very roro discussion with the patient and I told him we can treat him medically but I would recommend comfort medications and I recommended hospice. Patient initially was reluctant about hospice but was in agreement to speaking with him and he appeared to be leaning towards that for going home. * So treatment will be for comfort. Pain control, antiemetics. Debility * Patient denies having fallen but states that he does have to pay close attention to what he is doing. He wishes to remain at home and be as independent as he can. He expressed reluctance to ask people for help. Though he would be interested in having home nursing, to his house. I told him we can have case management look into that to see if there would be any option for that. He declined seeing therapy because he does not feel that he needs it. I did tell him that it would just be to evaluate his safety to see what services we could provide him. He declines it at this time. VTE prophylaxis: Not indicated as patient is already on rivaroxaban. Advance care planning: Spent additional 30 minutes discussing with the patient about advance care planning and hospice. Told him that I would recommend hospice given that he has had no significant effect with prior chemotherapy days been on and sounds like he is on a last such effort with his current regimen. And also told him that I reviewed his imaging of his chest x-rays and that there is been a dramatic worsening over the past 5 years. I did talk to her about hospice, speaking with hospice and that SARS-CoV-2 stating that if he were to speak with hospice he would not be obligated to proceed with hospice. He is open to speaking with hospice. I did discuss CODE STATUS with him and he wishes to be DNR Comfort Care arrest no intubation. Charges/Coding Visit Charges Inpatient E&M: 45487 Init Hosp L2 Procedures Hospitalists Procedures: 14833 Advncd Care Plan 30 Min
[2024-01-26 21:39] VITALS: BMI 19.8
[2024-01-26 22:03] VITALS: BP 142/89; PULSE 74; RESP 20; TEMP 37.2; O2SAT 96
[2024-01-26] MEDS: 0.9% Saline Lock 10 ML Syringe IV (23:51)
[2024-01-26] MEDS: Acetaminophen 500 MG Tablet 1000 MG PO (23:51)
[2024-01-26] MEDS: hydrOXYzine 10 MG Tablet PO (23:51)
[2024-01-26 23:54] VITALS: BP 154/99; PULSE 78; RESP 20; TEMP 37.1; O2SAT 94
[2024-01-27 06:45] VITALS: BP 140/78; PULSE 68; RESP 20; TEMP 37; O2SAT 97
[2024-01-27] MEDS: hydrOXYzine 10 MG Tablet PO ×3 (06:49→22:04)
[2024-01-27] MEDS: Acetaminophen 500 MG Tablet 1000 MG PO ×3 (06:49→22:03)
[2024-01-27 08:00] VITALS: PULSE 80; RESP 18; O2SAT 96
--- NOTE | 2024-01-27 08:36 | CASEMGMT ---
Social Work As per physician's note and order, pt agreeable to speak w/hospice. SW called [facility], made referral, faxed clinical information. They will call pt directly to set up a time to meet w/him and let SW know time. NILS Perez
[2024-01-27] MEDS: Gabapentin 100 MG Capsule PO ×3 (09:27→17:46)
--- NOTE | 2024-01-27 11:23 | PCM.PROGNOTE ---
Subjective Subjective Patient seen and examined. He had no active complaints. He felt quite weak. He denied any fever, chills, chest pain, palpitations, dizziness, nausea, vomiting or any other symptoms. Review of systems is otherwise negative. Objective Data Objective Data Vital Signs: Vital Signs Temp Pulse Resp BP Pulse Ox O2 Del Method 98.6 F 80 18 140/78 H 96 Room Air 01/27/24 06:45 01/27/24 08:00 01/27/24 08:00 01/27/24 06:45 01/27/24 08:00 01/27/24 08:00 Oxygen Delivery Method Room Air Weight: 126 lb 5.198 oz Body Mass Index (BMI) 19.8 Intake & Output: Intake and Output for Last 24 Hours 01/25/24 01/26/24 01/27/24 23:59 23:59 23:59 Intake Total 1000 / 1000 Balance 1000 / 1000 Lab / Micro Data 01/26/24 18:25 01/26/24 18:25 Labs: Laboratory Results - last 24 hr 01/26/24 18:25: WBC 9.2, RBC 2.86 L, Hgb 8.7 L, Hct 27.6 L, MCV 96.5 H, MCH 30.4, MCHC 31.5 L, RDW Std Deviation 76.5 H, RDW Coeff of Heavenly 22.0 H, Plt Count 236, MPV 8.7, Immature Gran % (Auto) 0.500, Neut % (Auto) 74.1 H, Lymph % (Auto) 14.8 L, [place] % (Auto) 10.0, Eos % (Auto) 0.3, Baso % (Auto) 0.3, Absolute Neuts (auto) 6.8, Absolute Lymphs (auto) 1.36, Nucleated RBC % 0.7, Differential Comment SCANNED, Hypochromasia 1+, Anisocytosis 2+, Microcytosis 1+, Macrocytosis 1+, Sodium 136, Potassium 3.8, Chloride 98, Carbon Dioxide 33.0 H, Anion Gap 5, BUN 18, Creatinine 0.62 L, Estim Creat Clear Calc 69.88, Est GFR (MDRD) Af Amer 166, Est GFR (MDRD) Non-Af 137, BUN/Creatinine Ratio 29.2 H, Glucose 97, Calcium 9.2, Total Bilirubin 0.80, AST 45 H, ALT 33, Alkaline Phosphatase 148 H, Troponin I High Sens 4, Total Protein 6.4, Albumin 2.1 L, Globulin 4.3 H, Albumin/Globulin Ratio 0.5 L, Lipase 12 L 01/26/24 18:48: Ammonia 26.0 Radiography Diagnostic Testing: Radiology Impression Brain CT 01/26/24 18:36 IMPRESSION: Normal unenhanced CT scan of the brain. Electronically Signed: Mukul Mcallister MD at 19:23 EDT Reading Location ID and State: [id number] / [employer] Tel , Service support , Chest X-Ray 01/26/24 18:55 IMPRESSION: Severe pulmonary parenchymal metastases. Electronically Signed: Mukul Mcallister MD at 19:20 EDT Reading Location ID and State: [id number] / [employer] Tel , Service support , Physical Exam Const alert, oriented x3 and no apparent distress Constitutional Narrative: frail looking HEENT normocephalic and head/scalp atraumatic Mouth: dry mucous membranes Eyes PERRL and EOMs intact bilaterally Neck no lymphadenopathy and supple Lymph Lymphatic: no lymphadenopathy noted and no lymphedema noted Resp normal respiratory effort, normal air movement and clear to auscultation bilaterally Cardio regular rate, regular rhythm, S1 normal heart sound, S2 normal heart sound and no murmurs GI normal to inspection, nondistended, normoactive bowel sounds, soft to palpation, non-tender and non-distended Extremity normal capillary refill, no clubbing, cyanosis or edema and no calf tenderness General Extremity: no tenderness to palpation of joints or extremities Skin General Skin Exam: no breakdown and turgor normal Neuro CN's II-XII intact bilaterally, no focal motor deficits, no sensory deficits noted and deep tendon reflexes 2+ bilaterally Motor Exam: strength 5/5 throughout and general weakness Psych thought process normal, cooperative and affect normal Appearance: appropriate Assessment & Plan Assessment/Plan (1) History of colon cancer: (2) Colon cancer: (3) S/P small bowel resection: PLAN: Plan #Debility and weakness due to stage IV colon cancer with mets to the lungs Has known colon cancer and has mets to the lungs. CT of the head showed no acute intracranial pathology. She has been on chemotherapy for about 8 and half years. Patient on chemotherapy but has been getting weaker at home. Patient amenable to talking to hospice so hospice will evaluate patient today. Gentle hydration with IV fluids. PT OT on board. Fall precautions. #History of incisional hernia: s/p repair. #History of VTE: on xarelto DVT prophylaxis: on xarelto Charges/Coding Visit Charges Inpatient E&M: 78526 Subs Hosp L2
[2024-01-27 12:00] VITALS: BP 170/84; PULSE 60; RESP 14; TEMP 36.8; O2SAT 96
--- NOTE | 2024-01-27 12:28 | CASEMGMT ---
Social Work SW spoke w/Leanna from hospice. She states pt did sign papers, inquired when pt is ready for discharge. SW will find out, let hospice know. She expressed concern as pt lives alone. SW asked physician about PT/OT, agreeable for this to be ordered to see how pt is ambulating. Pt initially did not want to do PT/OT. SW spoke w/pt, he is now agreeable to complete PT/OT. SW inquired if he has family that can help him at home if needed. Pt states yes, he has a lot of family who will help and do whatever. Pt has 12 siblings, 2 children, and an exwife as well. SW asked about adding contacts to his demographics as he had told Leanna Zavala on the face sheet is in rehab herself. He tried to find his exwife's number in his phone as a second contact, having difficulty coming up w/the number. SW suggested he give SW one of the kids' numbers to SW. He does not have any of the numbers saved so is just trying to scroll through to find numbers from prior conversations. SW will follow up w/pt again to see if he was able to come up w/any other numbers. SW will continue to follow. Plan will be home with hospice when ready. NILS Perez
[2024-01-27 14:00] VITALS: PULSE 65; RESP 18; O2SAT 95
--- NOTE | 2024-01-27 14:09 | CASEMGMT ---
MARK YEE NOTE: Intro role of CM to patient and TEJEDA form explained re: Observation status for treatment of debility, Stage IV colon cancer.? Explained hospitalization will be paid per?his insurance policy for Outpatient billing?and condition will continue to be evaluated for Inpt necessity. Also let pt know that [facility] sends paper in the billing packet with their phone number if questions arise. Pt verbalizes understanding and does not have any questions. ?Form signed, copy made and placed in chart, and original given to pt. Ed ORDOÑEZ RN CM
--- NOTE | 2024-01-27 16:01 | CASEMGMT ---
Social Work Pt met w/hospice and signed papers. Pt worked with PT/OT, did well enough to go home alone. SW let physician know, she will send him home w/hospice tomorrow. SW let pt know. Pt earlier was trying to find a gambling box person for SW to put on the paperwork. He has the numbers at home, but on his phone he is not able to figure it out without his glasses. He states a friend came to see him earlier, who is also a neighbor. He identifies this friend as a strong support who keeps emotions at bay. Pt again states his family will be helpful when he is home. He has not told his family yet what is going on. He states will speak w/two of his sisters tomorrow who are out of town, they call every Monday. He will let them know what is going on, has been hesitant to let them know up until now. He knows they will want to help but tend to be more emotional. He states he knows this may be selfish, but he is trying to stay in control of the situation. NI offered support to pt. Pt states his car is here and he plans to drive himself home tomorrow. SW placed green sheet on chart and wrote on green sheet to make sure physician is okay w/pt driving himself home. SW did also call hospice to let them know pt is going home tomorrow. NILS Perez
[2024-01-27] MEDS: 0.9% Normal Saline (1000mL) 1,000 ML 125 ML IV (16:48)
[2024-01-27 17:53] VITALS: BP 160/70; PULSE 65; RESP 18; TEMP 36.6; O2SAT 97
[2024-01-27 21:59] VITALS: BP 141/88; PULSE 72; RESP 22; TEMP 36.8; O2SAT 94
[2024-01-27] MEDS: Rivaroxaban 20 MG Tablet PO (22:03)
[2024-01-28] MEDS: 0.9% Normal Saline (1000mL) 1,000 ML 125 ML IV (01:00)
[2024-01-28 02:59] VITALS: BP 147/91; PULSE 69; RESP 22; TEMP 36.7; O2SAT 97
[2024-01-28] MEDS: hydrOXYzine 10 MG Tablet PO (04:48)
[2024-01-28] MEDS: Acetaminophen 500 MG Tablet 1000 MG PO (04:48)
[2024-01-28 07:35] VITALS: BP 158/94; PULSE 60; RESP 18; TEMP 36.5; O2SAT 96
[2024-01-28] MEDS: Gabapentin 100 MG Capsule PO (07:44)
--- NOTE | 2024-01-28 10:00 | DCINST_ITS ---
Discharge Instructions Diet Discharge Diet: Low fat / Low cholesterol Activity Discharge Activity: Return to Normal Activity Weight Bearing Status: Weight bearing as tolerated Dressing / Incision Call your doctor if you observe: Fever of 101 or Higher, Shortness of breath, Dizziness, Swelling in the ankles and Chest pain Follow Up Care Test Results: Test results from this visit will be discussed in further detail at your follow- up appointment, if applicable. Discharge Plan Admission Admit Date/Time: 01/26/24 21:22 Primary Reason for Your Visit: debility and weakness, metastatic colon cancer Attending Provider: Lauren Arce Primary Care Provider: Matheus Renee Consulting Providers: Matheus Shannon; Rosendo Tomlin; Carolin Cardenas; Lily Bustos; Nerissa Grande APPLICATIONS INSTRUCTOR Instructions Patient Instructions: ED FALL-from [id number] Discharge Orders/Prescriptions Prescriptions: Continued cyanocobalamin (vitamin B-12) 2,500 MCG tablet 2,500 mcg PO DAILY hydroxyzine HCl 10 mg tablet 10 mg PO Q8 Xarelto 20 mg tablet 20 mg PO QPM Referrals / Follow Up: Matheus Renee MD [Primary Care Provider] - Within 1 Week Disposition Disposition (needs filled in before D/C Order can be placed): Hospice in Home
--- NOTE | 2024-01-28 10:02 | DS.PCM_ITS ---
Providers Date of Admission: 01/26/24 Date of Discharge: 01/28/24 Primary Care Physician: Dr. Matheus Renee MD Consultations 01/26/24 21:38 Consult: Hospice / Palliative Care Routine Consulting Provider: [facility] Reason for Consult: stage IV colon cancer. EMERGENT Consult: No MD Notified: Yes Date Notified: 01/27/24 Time Notified: 09:00 Method of Notification: Answering Service Reason For Visit: DEBILITY , STAGE IV COLON CANCER Diagnosis Discharge Diagnosis (1) History of colon cancer: Status: Acute Code(s): Z85.038 - Personal history of other malignant neoplasm of large intestine (2) Colon cancer: Status: Acute Code(s): C18.9 - Malignant neoplasm of colon, unspecified (3) S/P small bowel resection: Status: Acute Code(s): Z90.49 - Acquired absence of other specified parts of digestive tract Plan #Debility and weakness due to stage IV colon cancer with mets to the lungs * Has known colon cancer and has mets to the lungs. CT of the head showed no acute intracranial pathology. She has been on chemotherapy for about 8 and half years. * Patient on chemotherapy but has been getting weaker at home. Patient amenable to talking to hospice so hospice will evaluate patient today. * Gentle hydration with IV fluids. PT OT on board. Fall precautions. * #History of incisional hernia: s/p repair. 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 He was admitted through the ED on 01/26/2024 with a complaint of weakness and difficulty remembering things. He also said he had had weight loss and had progressively gotten more short of breath. Patient had been on chemotherapy for his cancer for about 8 years and had recently been switched to an oral pill but was not sure was really working. He had been getting more debilitated and weaker at home so came in to the ED. Labs were unremarkable. HE was admitted and managed for debility and weakness in the setting of stage IV colon cancer with mets to the lungs. Patient was amenable to hospice and so hospice was consulted. He was hydrated with IVF. He signed up with hospice for home. He was discharged home on hospice on 01/28/2024. He is to follow up with his PCP and oncologist within 1-2 weeks. Patient seen and examined. He has no complaints and had an uneventful night. Review of systems is otherwise negative. Labs and vitals reviewed. Home meds reviewed and reconciled. Physical Exam Const alert, oriented x3 and no apparent distress Constitutional Narrative: frail looking General Appearance: cooperative and comfortable HEENT normocephalic, head/scalp atraumatic, hearing grossly normal bilaterally, moist oral mucous membranes and oropharynx normal Mouth: oral and palatal mucosa normal Eyes PERRL, EOMs intact bilaterally and conjunctivae normal Eyes Narrative: No icterus Neck no lymphadenopathy and supple Lymph Lymphatic: no lymphadenopathy noted and no lymphedema noted Resp normal respiratory effort, normal air movement, no retractions, no use of accessory muscles and clear to auscultation bilaterally Cardio regular rate, regular rhythm, S1 normal heart sound, S2 normal heart sound and no murmurs GI normal to inspection, nondistended, normoactive bowel sounds, soft to palpation, non-tender and non-distended Extremity normal to inspection, full ROM, normal capillary refill, no clubbing, cyanosis or edema and no calf tenderness General Extremity: no tenderness to palpation of joints or extremities Skin no rashes or lesions noted and no wounds General Skin Exam: no breakdown and turgor normal Neuro oriented x3, CN's II-XII intact bilaterally, moves all extremities, no focal motor deficits, no sensory deficits noted and deep tendon reflexes 2+ bilaterally Sensorium / Orientation: awake and alert Motor Exam: strength 5/5 throughout and general weakness Psych thought process normal, cooperative and affect normal Appearance: appropriate Medical Records Data Medical Nutrition Assessment Dietitian: Malnutrition Criteria Met Start: 01/27/24 15:15 Freq: Status: Active Protocol: Document 01/27/24 15:15 HORACE (Rec: 01/27/24 15:15 [facility] [id number]) Nutrition Malnutrition Evidence of Malnutrition Exists Yes Malnutrition (severe): Chronic Evidenced By Weight Loss (Severe),Physical Changes (Severe) Clinical Problem Chronic Disease or Condition Related Malnutrition Etiology related to physiological changes limiting oral intakes Signs/Symptoms as evidenced by significant weight loss of 26.3% or 45lb in 6 months, poor appetite over a year and a half, and moderate to severe muscle and fat wasting per NFPA (buccal, clavicle, deltoid, interosseous). Status Active Problem Recommendation Dietitian Recommendations/Changes Continue with Regular - General diet at this time for liberalization. Will add flavor preference to ONS order of EPHP 120mL 4x/day with medpass. Will continue to follow, monitor oral intakes and ONS tolerance, and modify interventions as needed. Weight / BMI Weight Weight: 126 lb 5.198 oz Body Mass Index (BMI) 19.8 ABG / Lab / Microbiology Data 01/26/24 18:25 01/26/24 18:25 D/C Instructions Discharge Diet: Low fat / Low cholesterol Discharge Activity: Return to Normal Activity Weight Bearing Status: Weight bearing as tolerated Call your doctor if you observe: Fever of 101 or Higher, Shortness of breath, Dizziness, Swelling in the ankles and Chest pain Meaningful Use Info Meaningful Use Meaningful Use Diagnoses (Choose all that apply): None applicable Ischemic Stroke Statin Dosing Therapy Reference: STATIN DOSE THERAPY REFERENCE: * Patients > 75 years receive moderate or high dose statin therapy. * Patients 75 years or YOUNGER should receive HIGH intensity statin dose unless contraindicated. You will be required to document reason for non-treatment if statin daily dose does not meet guidelines. HIGH DOSE STATIN THERAPY DAILY Atorvastatin > than or = to 40 mg Rosuvastatin > than or = to 20 mg Amlodipine + Atorvastatin > than or = to 2.5/40 mg Ezetimibe + Simvastatin 10/80 mg Simvastatin 80mg Discharge Plan Admission Admit Date/Time: 01/26/24 21:22 Primary Reason for Your Visit: debility and weakness, metastatic colon cancer Attending Provider: Lauren Arce Primary Care Provider: Matheus Renee Consulting Providers: Matheus Shannon; Rosendo Tomlin; Carolin Cardenas; Lily Bustos; Nerissa Grande MANAGER DELIVERY Instructions Patient Instructions: ED FALL-from [id number] Discharge Orders/Prescriptions Prescriptions: Continued cyanocobalamin (vitamin B-12) 2,500 MCG tablet 2,500 mcg PO DAILY hydroxyzine HCl 10 mg tablet 10 mg PO Q8 Xarelto 20 mg tablet 20 mg PO QPM Referrals / Follow Up: Matheus Renee MD [Primary Care Provider] - Within 1 Week Disposition Disposition (needs filled in before D/C Order can be placed): Hospice in Home Charges/Coding Visit Charges Inpatient E&M: 36631 Disch Hosp >30min
[2024-01-28 12:55] VITALS: BP 137/96; PULSE 70; RESP 18; TEMP 36.7; O2SAT 97
[2024-01-28] MEDS: 0.9% Saline Lock 10 ML Syringe IV (12:58)
== END 2024-01-28 13:01 | disposition hospice, home (50) ==
LOC: ED 20:11 → MS3 20:31
PROVIDERS: Emergency Provider Student in an Organized Health Care Education/Training Program; PCP Family Medicine; Visit Provider Student in an Organized Health Care Education/Training Program
DX: C18.9 Malignant neoplasm of colon, unspecified (principal); C78.00 Secondary malignant neoplasm of unspecified lung; C78.7 Secondary malignant neoplasm of liver and intrahepatic bile duct; C78.80 Secondary malignant neoplasm of unspecified digestive organ; R53.81 Other malaise; R53.1 Weakness; R41.0 Disorientation, unspecified; Z87.891 Personal history of nicotine dependence; Z92.21 Personal history of antineoplastic chemotherapy; Z79.899 Other long term (current) drug therapy; Z51.5 Encounter for palliative care; Z66 Do not resuscitate; R63.4 Abnormal weight loss; Z68.1 Body mass index [BMI] 19.9 or less, adult
CPT/HCPCS: 36591; 70450; 71045; 80053; 82140; 83690; 84484; 85025; 96361; 96374; 97161; 97165; 97802; 99221; 99285; J7030; A4216; G0378